=== PATIENT | female | born 1960 | race Caucasian/White ===

== ENCOUNTER → 2016-05-25 | Outpatient (CLI) | payer OTHER ==
[~2016-05-25] MED LIST: AMBIENCR PO; ANTIBIOTIC; ARNICA120 ML TP; B 12 INJECTIONS; B12INJ SQ; BUTRANS1 EAC1 TD; CELEXA20 MG PO; CIPROFLOXACIN500 M1 PO; CLONAZEPAM PO; COLACE100 MG PO; DIAZEPAM5 MG/5 ML PO; DULCOLAX STOOL100 MG PO; ESTROVEN MAX400 MCG PO; FENTANYL PA12 MCG/HR TP; FENTANYL PA25 MCG/HR TOP; FENTANYL PA25 MCG/HR TRANSDERM; FENTANYL PA50 MCG/HR TRANSDERM; FLOMAX0.4 MG PO; HORMONE PILL; HYCET 7.5 MG-3473 ML PO; HYDROCODON-ACE1 EAC5 PO; HYDROCODONE BI473 ML PO; HYDROCODONE PO; HYDROCODONE-AP1 EA11 PO; HYDROCODONE-APA10 ML PO; HYDROCODONE-APA15 ML PO; HYDROXYZINE HCL25 M1 PO; LEXAPRO20 MG PO; LINZESS290 MCG PO; LORTABELXR PO; MOBIC15 MG PO; MOVANTIK25 MG PO; MULTIPLE VITAM1 EAC3 PO; MULTIVITAMINS PO; NEURONTIN 300300 M1 PO; NEURONTIN100 MG PO; NORCO 10-325 T1 EACH PO; NORTRIPTYLINE H25 M3 PO; NYQUIL D COLD295 ML; NYQUIL D COLD295 ML PO; OMEPRAZOLE20 M2 PO; ONDANSETRON ODT8 MG PO; OXYCODONE HCL 55 MG PO; PANTOPRAZOLE SO40 M1 PO; PAXIL 20 MG TAB20 M1 PO; PERCOCET 10-321 EACH PO; PERCOCET 5-3251 EACH PO; PERCOCET PO; PHENERGAN 25 MG25 M1 PO; PROBIOTIC1 EAC1 PO; RELISTOR12 MG/0.2 SQ; RESTORIL15 MG PO; ROBAXIN 750 MG750 M1 PO; ROXICODONE5 MG PO; TRAMADOL 50 MG50 MG PO; TRAZODONE HCL50 MG PO; TRIAMTERENE/HCT1 CA1 PO; VALIUM5 MG PO; WELLBUTRIN SR150 MG PO; WELLBUTRIN XL300 MG PO; XANAX 0.25 MG0.25 MG PO; XANAX 0.5 MG0.5 M1 PO; ZOFRAN ODT4 MG PO; ZOFRAN4 MG PO; ZOLOFT 50 MG TA50 M1 PO; [UNRECOGNIZED DRUG - OTHER]; [UNRECOGNIZED DRUG - OTHER]; [UNRECOGNIZED DRUG - OTHER] PO; [UNRECOGNIZED DRUG - OTHER] TOP
[2016-05-25 12:07] LABS: NUMBER OF TUBES 4; VOLUME 8 ml
[2016-05-25 12:08] LABS: CSF CLARITY CLEAR; CSF COLOR COLORLESS
[2016-05-25 12:09] LABS: CSF PROTEIN 44 mg/dL (15-45)
[2016-05-25 12:15] LABS: CSF WBC 0 /mm3 (0-10)
== END ==
LOC: RAD 09:41
PROVIDERS: Psychiatry & Neurology Neurology
DX: S31.030A Puncture wound without foreign body of lower back and pelvis without penetration into retroperitoneum, initial encounter (principal); M79.2 Neuralgia and neuritis, unspecified

== ENCOUNTER → 2016-05-27 | Outpatient (CLI) | payer OTHER ==
[~2016-05-27] VITALS: Ht 167.6 cm; Wt 96.2 kg
--- NOTE | ~2016-05-27 | H ---
[facility] [address] HISTORY AND PHYSICAL Name: PATRICIA DURHAM GARRY [id number] Ad[facility]: 05/27/16 Attend Phys: Reynaldo Aaron MD Discharge: Date of : 60 Report #: [id number] THIS REPORT FOR: //name// CC: Fredrick Aaron DATE OF SERVICE: 05/27/2016 REASON FOR VISIT: Followup visit for chronic pain, multiple pain generators. Chronic abdominal pain now, primary complaints of left side pain involving arm, torso and leg. HISTORY OF PRESENT ILLNESS: Patricia returns to the pain clinic today in followup. She was last seen one month ago. We had a long discussion about her medications, which had been prescribed by Dr. Nolasco on 05/01/2016. I did not prescribe narcotics for her on that day; he had prescribed it for her. We discussed the important aspects of following up with us for her opioid agreement and I have agreed to provide her once again with medications under terms of our agreement. Her pain remains a bit of a conundrum. She has been seeing Dr. Nolasco, who performed her anterior cervical diskectomy and fusion. He does not think it is related. She is seeing Dr. Kumar and also has been seen by Dr. Fide Russell, neurologist, who performed a lumbar puncture 1 week ago, the results of which are pending. Her symptoms are left sided, do not follow a strict dermatomal distribution and are associated with diffuse aches and pains all along the left side. The intensity of the pain is 6-7/10. It changes with standing, walking, lying down and driving. It is improved with medication, and I have agreed to continue her medications under terms of our agreement. She continues to have nausea and vomiting. Her iron has been low and she is scheduled to receive infusions at . We still have problems with Patricia in that she has seen so many different medical systems and seeing so many different doctors, it is hard to keep track. She is seeing Dr Kumar, Dr. Que Caballero, Dr. Simon, Dr. Manuel Mar, Dr. Figueroa, Dr. Cavazos, Dr. Keo Garibay, Dr. Lakshmi Davenport, now Dr. Russell and Dr. Nolasco. I have told her that are role will be to provide her with medication for her symptoms of pain and I will monitor those closely. She has no significant side effects. Without medication, she feels that she would not be able to get up and out at all. PHYSICAL EXAMINATION: VITAL SIGNS: She is obese, 34.2, blood pressure of 106/73, heart rate 71 and respirations 16. [address] [address] HISTORY AND PHYSICAL Name: PATRICIA DURHAM GARRY Room #: REG CLI M.#: [id number] Admission: 05/27/16 Attend Phys: Reynaldo Aaron MD Discharge: Date of : 60 Report #: [id number] GENERAL: Her affect is anxious and depressed. CHEST: Clear to auscultation. CARDIOVASCULAR: Rhythm is regular. ABDOMEN: Soft, bowel signs are present. MUSCULOSKELETAL: Examination of the skeleton and spine reveals tenderness throughout her neck. She has good range of motion in neck extension and flexion, but complains of some tightness anteriorly from her previous surgery. Deep tendon reflexes are diminished bilaterally at biceps, triceps and brachioradialis and in the lower extremities. She has weakness all along her left side on testing. She has weakness in triceps function, biceps and deltoid. Hand principal librarian is 50% on the left compared to the right. She has pain with hip flexion, leg extension and both are weak on the left hand side. She has a foot drop noticed on the left. This is chronic. IMPRESSION: 1. Chronic abdominal pain related to multiple surgeries, possible functional abdomen. 2. Status post anterior cervical diskectomy with cervicalgia. Unusual left sided disorder with weakness and pain, currently being followed by neurology. 3. Osteoarthritis with history of degenerative osteoarthritis of the left shoulder, hips and knees. 4. Anxiety disorder. 5. Depression. 6. Obesity. 7. Gastroesophageal reflux disease. 8. History of Sjogren's disease. 9. Management of high risk medication. PLAN: I renewed her medications under terms of our opioid agreement. She will be receivin. Gabapentin 100 mg t.i.d. 2. Diazepam 5 mg for muscle spasm and anxiety 1 tablet q.8 hours p.r.n. 3. Oxycodone 5 mg 1 tablet q.6 hours p.r.n. severe pain. Followup visit is planned in 2 months. <ELECTRONICALLY SIGNED> By: Reynaldo Aaron MD 05/28/16 1329 1607 1701 Reynaldo Aaron MD /nt
[2016-05-27 11:20] VITALS: BP 106/73
== END ==
LOC: PAIN 07:25
DX: R10.9 Unspecified abdominal pain (principal); M96.1 Postlaminectomy syndrome, not elsewhere classified; F41.8 Other specified anxiety disorders; K21.9 Gastro-esophageal reflux disease without esophagitis; M35.00 Sjogren syndrome, unspecified

== ENCOUNTER → 2016-09-09 | Outpatient (CLI) | payer OTHER ==
[~2016-09-09] VITALS: Ht 162.6 cm; Wt 98.0 kg
[~2016-09-09] MED LIST changes: +OXYCODON-ACETA1 EAC1 PO; +OXYCODONE-APAP1 EAC6 PO; +PROMETHAZINE HC25 M1 PO
--- NOTE | ~2016-09-09 | HPC ---
[facility] [place] [address] PAIN MANAGEMENT CONSULTATION Name: PATRCIIA DURHAM GARRY Room #: REG CL [facility]ad.#: [id number] Admission: 09/09/16 Attend Phys: Reynaldo Aaron MD Discharge: Date of : 60 Report #: [id number] THIS REPORT FOR: //name// CC: Fredrick Aaron DATE OF SERVICE: 09/09/2016 Followup visit for chronic low back pain with radiculopathy status post lumbar decompression. The patient returns to pain clinic today in followup. I saw her last on August 05 after her surgery when she had an open wound. She is here today to follow up for medication management. She remains on oxycodone 10/325 and we had upped her dose up to 5 tablets a day. She has agreed today that her pain is reduced at a level, so we can begin reducing her dose. The importance of doing this in relationship to the use of lowest effective dose of opioids has been discussed on many occasions. She has agreed that we will reduce both the quantity of tablets as well as the mg dose of each tablet, so a prescription today for Percocet 7.5/325 number 120 for the next month was provided. Most recent urine drug screen was performed in April, it was reviewed, it was appropriate for medications provided by the clinic. Today, she reports that her pain is 7/10. Most of her pain is in her neck today, left arm, left side. She also has some low back pain and left leg pain at night. Wound is no longer as painful as before. She has a third pain generator, which is in her left abdomen where she feels that she may have a hernia. This is worsened with hip flexion. PHYSICAL EXAMINATION: She is pleasant, little bit anxious today due to her persistent ongoing pain. Blood pressure is 97/64 and she has some orthostatic changes. is 216. Her weight is up about 20 pounds from 1 year ago checked by her records. She is able to move from sitting to standing position and ambulate with mild antalgic features. I examined her wound and it is much improved. There is still a little area of opening, but there is no drainage. She is not even using a dressing to cover this area. Examination of her neck reveals pain with forward flexion, extension and rotation. She has some weakness in her left arm with biceps and triceps. Examination of her hernia on the left side is negative. She has multiple incisions and an incisional hernia could be obscured by her obesity. IMPRESSION: 1. Chronic intractable pain with multiple pain generators. 2. Post-laminectomy issues seem to be resolving. 3. Management of high-risk medication. [facility] [address] [place] [address] PAIN MANAGEMENT CONSULTATION Name: PATRICIA DURHAM GARRY Room #: REG CLRich Rios#: [id number] Admission: 09/09/16 Attend Phys: Reynaldo Aaron MD Discharge: Date of : 60 Report #: [id number] PLAN: I renewed oxycodone 7.5/325, reduction of about 30% in her daily dose today. We plan to see her back in the pain clinic in 3 months. By: [id number] Reynaldo Aaron MD /nt
[2016-09-09 08:53] VITALS: BP 97/64
== END ==
LOC: PAIN 06:59
DX: M96.1 Postlaminectomy syndrome, not elsewhere classified (principal); E88.09 Other disorders of plasma-protein metabolism, not elsewhere classified

== ENCOUNTER → 2016-12-06 | Outpatient (CLI) | payer OTHER ==
[~2016-12-06] VITALS: Ht 162.6 cm; Wt 91.4 kg
[~2016-12-06] MED LIST changes: +MYRBETRIQ50 MG PO
[2016-12-06 11:46] VITALS: BP 103/67
== END | disposition home or self-care (01) ==
LOC: PAIN 06:51
DX: M96.1 Postlaminectomy syndrome, not elsewhere classified (principal); G89.29 Other chronic pain; R10.9 Unspecified abdominal pain; F11.20 Opioid dependence, uncomplicated; M35.09 Sjogren syndrome with other organ involvement; E66.09 Other obesity due to excess calories; Z98.890 Other specified postprocedural states; Z88.8 Allergy status to other drugs, medicaments and biological substances

== ENCOUNTER → 2016-12-17 | Outpatient (CLI) | payer OTHER | LOC: NUC 13:21 | DX: M81.0 Age-related osteoporosis without current pathological fracture (principal); E34.9 Endocrine disorder, unspecified; R31.9 Hematuria, unspecified ==

== ENCOUNTER → 2017-03-03 | Outpatient (CLI) | payer OTHER ==
[~2017-03-03] VITALS: Ht 160 cm; Wt 83.9 kg
[~2017-03-03] MED LIST changes: +IBUPROFEN 200200 M1 PO
--- NOTE | ~2017-03-03 | HPC ---
[facility] [address] [address] PAIN MANAGEMENT CONSULTATION Name: PATRICIA DURHAM GARRY [id number] Admission: 03/03/17 Attend Phys: Reynaldo Aaron MD Discharge: Date of : 60 Report #: [id number] THIS REPORT FOR: //name// CC: Fredrick Aaron DATE OF SERVICE: 03/03/2017 The patient is here today in followup for medication management. She has chronic abdominal pain. The patient was last seen in November. At that time, she was having ongoing back pain as well as abdominal pain. She had shown some small weight loss, which has continued. We looked back and it looks as though she has lost about 40 pounds over the course of last year. It is not altogether bad. Her BMI still is 32.8. We discussed ongoing weight loss as an important health goal. She reports; however, that her weight loss is due to the fact that she is anorexic and unable to eat. She has had ongoing diarrhea on a favorable note. At one point, we were concerned about bowel obstruction and as she has had so many abdominal surgeries that I was afraid that she was going to need to have another wading through all the scar tissue. Fortunately, stenosis was resolved and she seems to have avoided additional abdominal surgery. Today, she complains of severe right arm pain and she has surgery scheduled for her shoulder soon. She has decreased range of motion, has tried physical therapy, but the pain is now worse. She reports that she has a rotator cuff injury. I do not have her MRI to evaluate. She is being seen by orthopedic surgeon. She has constant headaches, nothing seems to help that, involves her temples and are frontal in nature. She has tried a variety of medications with limited success. MEDICATIONS: Nortriptyline 10 mg at bedtime, she uses ibuprofen and I have given her cautions about that and her GI system. Estrogen compound cream and trazodone 50 mg at bedtime, Linzess 290 mcg capsule daily, Myrbetriq and pantoprazole. For her abdominal pain, she has been on longstanding oxycodone 7.5 mg, which she takes q.6 hours, this is a total of 30 oxycodone mg per day or 45 morphine mg equivalents. She denies significant side effects. She receives benefit with significant reductions in pain and improvement in daily function. She denies any overuse or diversion of medication. She has been on schedule for each of her visits. Urine drug screens have been performed as well as a buccal screen, which is appropriate for medication being prescribed. She is also on diazepam 5 mg 3 times daily for chronic anxiety and abdominal pain. She seems to have a beneficial effect for her abdominal pain. We have on many occasions discussed the association of an opioid, benzodiazepine and overdose. She has been on it so long that I think it is safe combination for her, but she needs to [address] [place] [address] PAIN MANAGEMENT CONSULTATION Name: HERMINIOPATRICIA JO Room #: REG CLRich Rios#: [id number] Admission: 03/03/17 Attend Phys: Reynaldo Aaron MD Discharge: Date of : 60 Report #: [id number] understand that the doses need to be carefully monitored and she should not accelerate the doses that we have seen as safe. PHYSICAL EXAMINATION: Her affect is pleasant and outgoing. Her blood pressure 123/80, heart rate 81, and respirations 16. BMI is 32.8, down from 6 months ago when she was 34 and 1 year ago when her BMI was 34.3. Her chest is clear. Her cardiac rhythm is regular. Her abdomen is tender throughout with multiple scars. Examination of the skeletal system reveals significant restrictions in range of motion of the right shoulder with internal and external rotation. She has marked tenderness around the joint. No appreciable swelling. IMPRESSION: 1. Chronic abdominal pain. 2. Chronic neck pain, status post anterior cervical discectomy with fusion. 3. Chronic low back pain, status post surgery in July 2016. 4. Severe right shoulder pain related possibly to rotator cuff injury and surgery anticipated. 5. Management of high risk medication under terms of an opioid agreement. We have reviewed the CDC guidelines and we have reviewed her responsibilities. Her medication is being used cautiously and carefully and we plan to follow up again in 3 months. Buccal drug screen will be performed at next visit. Time spent with the patient roughly 30 minutes. By: 1131 [id number] Reynaldo Aaron MD /nt
[2017-03-03 11:23] VITALS: BP 123/80
== END | disposition home or self-care (01) ==
LOC: PAIN 02-03 06:53
DX: Z76.0 Encounter for issue of repeat prescription (principal); G89.29 Other chronic pain; R10.9 Unspecified abdominal pain; M54.2 Cervicalgia; M54.5 Low back pain; M25.511 Pain in right shoulder; F41.8 Other specified anxiety disorders; Z79.891 Long term (current) use of opiate analgesic; Z98.890 Other specified postprocedural states; Z88.6 Allergy status to analgesic agent; Z88.0 Allergy status to penicillin; Z88.2 Allergy status to sulfonamides

== ENCOUNTER → 2017-05-04 | Outpatient (CLI) | payer OTHER ==
[~2017-05-04] MED LIST changes: +OXYCODONE-ACET1 EAC2 PO
== END ==
LOC: HYPER 06:44
DX: S81.801A Unspecified open wound, right lower leg, initial encounter (principal); K21.9 Gastro-esophageal reflux disease without esophagitis; F32.9 Major depressive disorder, single episode, unspecified; Z90.710 Acquired absence of both cervix and uterus; X58.XXXA Exposure to other specified factors, initial encounter; Y93.89 Activity, other specified; Y92.89 Other specified places as the place of occurrence of the external cause; Y99.8 Other external cause status

== ENCOUNTER → 2017-05-19 | Outpatient (CLI) | payer OTHER ==
[~2017-05-19] MED LIST changes: +BENTYL 10 MG CA10 M1 PO; +PILOCARPINE HCL5 M1 PO; +RESTASIS1 EACH OPHTHALMIC; +ZOFRAN ODT4 MG DISSOLVE; +[UNRECOGNIZED DRUG - OTHER] TOP
== END ==
LOC: HYPER 06:52
DX: T81.89XD Other complications of procedures, not elsewhere classified, subsequent encounter (principal); L03.115 Cellulitis of right lower limb; R60.0 Localized edema; K21.9 Gastro-esophageal reflux disease without esophagitis; F32.9 Major depressive disorder, single episode, unspecified; Z90.710 Acquired absence of both cervix and uterus; Y83.8 Other surgical procedures as the cause of abnormal reaction of the patient, or of later complication, without mention of misadventure at the time of the procedure

== ENCOUNTER → 2017-05-27 | Outpatient (CLI) | payer OTHER ==
[~2017-05-27] VITALS: Ht 160 cm; Wt 81.6 kg
--- NOTE | ~2017-05-27 | HPC ---
[facility] [address] [place] [address] PAIN MANAGEMENT CONSULTATION Name: HERMINIO,PATRICIA GARRY Room #: REG [id number] Admission: 05/27/17 Attend Phys: Hermes Figueroa MD Discharge: Date of : 60 Report #: [id number] THIS REPORT FOR: //name// CC: Hermes Kumar MD DATE OF SERVICE: 05/27/2017 FOLLOWUP COMPLAINT: Here for medication renewal. FOLLOWUP HISTORY: The patient is a 57-year-old female who has been followed in the pain clinic by Dr. Reynaldo Aaron. He has continued with her medications of a complex medical management treatment. She feels that her medications are continuing to be quite efficacious. She is unable to see Dr. Aaron today and will follow up with him in about a month. She states that she has pain and discomfort in a number of areas. It involves her stomach, esophagus, as well as her shoulders. She had shoulder surgery in 2017. She states that she has had some problems with osteoporosis, sporadic changes and is having some discomfort in her neck, left arm, back, as well as some pain at night in her legs and abdomen. She rates her pain today as a 7/10. She describes the discomfort as dull, aching, spasmodic, and stabbing. She states that her incisions have continued to heal up very nicely in her right shoulder area. ALLERGIES: TAPE, MORPHINE, DILAUDID, AND ZOLPIDEM. MEDICATIONS: OxyContin 7.5 mg 1 p.o. q. 6 hours p.r.n., Valium for muscle spasms 5 mg p.r.n. as well as for anxiety, ibuprofen 200 mg q. 6 hours p.r.n., Myrbetriq, Linzess 290 mcg, trazodone 50 mg at bedtime, estrogen cream, hydroxyzine 25 mg t.i.d., vitamin B12, Relistor 12/0.6, and pantoprazole 40 mg daily. PHYSICAL EXAMINATION: VITAL SIGNS: Blood pressure 129/74, pulse 86, respiratory rate 20, room air saturations 100, height 5 feet 3 inches, weight 188 pounds, BMI is 33. GENERAL: The patient does complain of some vertigo/dizziness. She has not fallen. HEENT: Unremarkable. Head is atraumatic. Extraocular muscles intact. No JVD. No adenopathy. HEART: Regular rate and rhythm, normal S1, S2. LUNGS: Clear to auscultation. ABDOMEN: Somewhat tender per the patient's report. EXTREMITIES: Some soreness in the right shoulder area status post surgery. IMPRESSION: 1. Chronic abdominal pain. [address] [address] PAIN MANAGEMENT CONSULTATION Name: PATRICIA DURHAM Room #: REG CLI [facility].#: [id number] Admission: 05/27/17 Attend Phys: Hermes Figueroa MD Discharge: Date of : 60 Report #: [id number] 2. Chronic neck pain, status post anterior cervical dissection with fusion. 3. Chronic low back pain status post surgery in July 2016. 4. Right-sided shoulder pain, which is improving. 5. Management of high risk medications under terms of an opioid agreement. RECOMMENDATIONS: We discussed treatment options with the patient. At this juncture, we will continue with her current medical regimen of oxycodone. She states that her other medications are good, doing reasonably well. She will follow up with Dr. Aaron in the near future. She is feeling that she may have some problems going on with her kidneys. She has experienced kidney stones in the past. She states that she is having some discomfort consistent with what she has experienced when she did have kidney stones. She states that her urine maybe a little bit more concentrated at this juncture. She is going to see her urologist in the near future in this regard. She will call us if she has any problems or concerns. We would like to thank you for letting us participate in her care. Hope she continues to improve. <ELECTRONICALLY SIGNED> By: Hermes Figueroa MD 06/01/17 0837 1417 0120 Hermes Figueroa MD /[facility]
[2017-05-27 11:29] VITALS: BP 100/58
== END ==
LOC: PAIN 10:57
DX: R10.9 Unspecified abdominal pain (principal); M54.2 Cervicalgia; M54.5 Low back pain; M25.511 Pain in right shoulder; F11.90 Opioid use, unspecified, uncomplicated; Z98.890 Other specified postprocedural states; Z79.899 Other long term (current) drug therapy

== ENCOUNTER → 2017-06-02 | Outpatient (CLI) | payer OTHER | LOC: HYPER 05-12 06:31 | DX: T81.89XD Other complications of procedures, not elsewhere classified, subsequent encounter (principal); K21.9 Gastro-esophageal reflux disease without esophagitis; F32.9 Major depressive disorder, single episode, unspecified; F41.9 Anxiety disorder, unspecified; Z90.710 Acquired absence of both cervix and uterus; Y83.8 Other surgical procedures as the cause of abnormal reaction of the patient, or of later complication, without mention of misadventure at the time of the procedure ==

== ENCOUNTER → 2017-06-20 | Outpatient (CLI) | payer OTHER ==
[~2017-06-20] VITALS: Ht 160 cm; Wt 83.1 kg
--- NOTE | ~2017-06-20 | HPC ---
[facility] [address] [address] PAIN MANAGEMENT CONSULTATION Name: HERMINIOPATRICIA GARRY [facility]: [facility] [id number] Admission: 06/20/17 Attend Phys: Reynaldo Aaron MD Discharge: Date of : 60 Report #: [id number] THIS REPORT FOR: //name// CC: Fredrick Aaron DATE OF SERVICE: 06/20/2017 DATE OF REGISTRATION: 06/20/2017 Followup visit for management of chronic intractable pain and management of medication. The patient returns to pain clinic today for renewal of medication. She was last seen by my partner, Dr. Figueroa a little less than 1 month ago and he provided with 1 month of medication. Under terms of written opioid agreement, I agreed to provide her with hydrocodone 7.5/325 four tablets daily. She has been on this in combination with diazepam and has done well with it. She has had no interactions suggesting overmedication or sedation and I have discussed with her the pathology data from overdoses that have been recognized the dangerous nature of combination of benzodiazepine with opioids. Given her longstanding use of both of these medications and lack of complication, I have agreed to provide it for muscle spasm and pain. She will diligently safeguard her medications as we have discussed. PQRS REVIEW: Today shows that she does have a BMI of 32.5 and weight loss has been discussed in the past. She has chronic abdominal pain, but her ability to lose weight is limited even though she describes absorption issues. This likely related to her lack of metabolic activity and exercise. It was reviewed today. Pain intensity is 7/10, mostly in her neck, shoulders, and upper back. She had requested an epidural injection. She is not a fall risk. She is on no blood thinners. She is not hypertensive. She does have a written opioid agreement, which has been signed and reviewed again with her today. She is at low risk of addiction 2-3 based upon her assessment and her functional assessment tool is 24/70. It is noted that she has an open wound on her leg that has been slow in healing. IMPRESSION: 1. Chronic intractable abdominal pain well controlled at this time. 2. Chronic neck pain, status post anterior cervical diskectomy and fusion. She has some radicular features. I do not want to perform an epidural injection with steroids as she has this poorly [place] [address] PAIN MANAGEMENT CONSULTATION Name: PATRICIA DURHAM GARRY Room #: REG CLRich Rios#: [id number] Admission: 06/20/17 Attend Phys: Reynaldo Aaron MD Discharge: Date of : 60 Report #: [id number] 3. Management of high risk medications and her written opioid agreement. PLAN: I have renewed her medications for 3 months. A buccal drug screen was ordered since it has been sometimes since we have had an assessment of her medications. She was discharged with a followup visit planned in 3 months. <ELECTRONICALLY SIGNED> By: Reynaldo Aaron MD 07/20/17 1640 1321 2150 Reynaldo Aaron MD /nt
[2017-06-20 11:25] VITALS: BP 99/66
== END ==
LOC: PAIN 07:03
DX: G89.29 Other chronic pain (principal); M54.2 Cervicalgia; M54.6 Pain in thoracic spine; M25.511 Pain in right shoulder; M25.512 Pain in left shoulder; F11.90 Opioid use, unspecified, uncomplicated; Z98.890 Other specified postprocedural states; Z79.899 Other long term (current) drug therapy

== ENCOUNTER → 2017-06-20 | Outpatient (CLI) | payer OTHER | LOC: HYPER 06:48 | DX: T81.89XD Other complications of procedures, not elsewhere classified, subsequent encounter (principal); K21.9 Gastro-esophageal reflux disease without esophagitis; F32.9 Major depressive disorder, single episode, unspecified; Z90.710 Acquired absence of both cervix and uterus; Y83.8 Other surgical procedures as the cause of abnormal reaction of the patient, or of later complication, without mention of misadventure at the time of the procedure ==

== ENCOUNTER → 2017-07-04 | Outpatient (CLI) | payer OTHER | LOC: HYPER 07:01 | DX: T81.89XD Other complications of procedures, not elsewhere classified, subsequent encounter (principal); L03.115 Cellulitis of right lower limb; R60.0 Localized edema; K21.9 Gastro-esophageal reflux disease without esophagitis; F32.9 Major depressive disorder, single episode, unspecified; Z90.710 Acquired absence of both cervix and uterus; Y83.8 Other surgical procedures as the cause of abnormal reaction of the patient, or of later complication, without mention of misadventure at the time of the procedure ==

== ENCOUNTER → 2017-08-08 | Outpatient (CLI) | payer OTHER ==
[~2017-08-08] VITALS: Ht 160 cm; Wt 82.2 kg
--- NOTE | ~2017-08-08 | HPC ---
[facility] [place] [address] [address] PAIN MANAGEMENT CONSULTATION Name: PATRICIA DURHAM GARRY Room #: REG [facility].#: [id number] Admission: 08/08/17 Attend Phys: Reynaldo Aaron MD Discharge: Date of : 60 Report #: [id number] THIS REPORT FOR: //name// CC: Fredrick Aaron DATE OF SERVICE: 08/08/2017 REASON FOR VISIT: Followup visit for cervical radiculopathy. HISTORY OF PRESENT ILLNESS: The patient presents back to the Pain Clinic today with cervicalgia with radiation into the shoulders and upper arms. She is here today for a cervical epidural. She describes her pain as a 7/10, sharp, stabbing and aching. Pain is exacerbated by eating (!). She states her pain level is constant throughout the day. PHYSICAL EXAMINATION: VITAL SIGNS: Blood pressure 107/59, heart rate 75, respirations 16 and BMI is 32.1. MUSCULOSKELETAL: She has pain with neck flexion and extension, rotational side to side movements. She has weakness in retail account representative and biceps. Sensation is intact. Deep tendon reflexes are normal in lower extremities. IMPRESSION: 1. Cervicalgia with radiculopathy. 2. Chronic abdominal pain under medication management. PLAN: 1. Cervical epidural injection. 2. Renewal of oxycodone 7.5 one tablet 4 times daily. Morphine milligram equivalent dose per day is 45. She is on an opioid agreement. Important safeguarding information reviewed. I also provided with chronic diazepam, which helps with abdominal spasm. She has demonstrated safety in this combination now for many years at current dosing. PROCEDURE: Cervical epidural injection. She was taken to fluoroscopic suite, placed prone, skin prepped with ChloraPrep. Skin anesthetized over the C7-T1 interspace. A 20-gauge Tuohy epidural needle was advanced into the cervical epidural space with loss of resistance technique. There was no blood or CSF aspirated. One milliliter of Omnipaque injected and good spread of dye observed into the epidural space cephalad and caudad was followed by 3 mL of 0.5% lidocaine mixed with 80 mg of triamcinolone. She tolerated the procedure well. She was observed for 45 minutes and discharged. Followup visit planned on an as needed basis. [address] [address] PAIN MANAGEMENT CONSULTATION Name: PATRICIA DURHAM GARRY Room #: REG JOSE Rios#: [id number] Admission: 08/08/17 Attend Phys: Reynaldo Aaron MD Discharge: Date of : 60 Report #: [id number] I renewed her medications and reviewed her Medicare PQRS assessment. She does suffer from obesity with a BMI of 32.1. She has tried to control weight. Blood pressure is stable with no history of hypertension. Blood pressure 107/59 and heart rate 75. She is not a fall risk. She has an opioid agreement signed on her chart dated 11/03/2015. She has completed an opioid risk tool with a low risk of 2. Her functional assessment tool shows good pain management techniques with a 24/70. She denies use of tobacco. Followup visit is planned in 3 months. <ELECTRONICALLY SIGNED> By: Reynaldo Aaron MD 08/29/17 1408 1140 1210 Reynaldo Aaron MD /nt
[2017-08-08 13:19] VITALS: BP 107/59
== END | disposition home or self-care (01) ==
LOC: PAIN 07:23
DX: M54.12 Radiculopathy, cervical region (principal); G89.29 Other chronic pain; R10.9 Unspecified abdominal pain; E66.09 Other obesity due to excess calories; Z79.891 Long term (current) use of opiate analgesic; Z68.32 Body mass index [BMI] 32.0-32.9, adult; Z88.8 Allergy status to other drugs, medicaments and biological substances

== ENCOUNTER → 2017-08-10 | Outpatient (CLI) | payer OTHER | LOC: NUC 14:20 | DX: M81.0 Age-related osteoporosis without current pathological fracture (principal); E28.39 Other primary ovarian failure; Z79.899 Other long term (current) drug therapy ==

== ENCOUNTER → 2017-09-05 | Outpatient (CLI) | payer OTHER ==
[~2017-09-05] MED LIST changes: -BENTYL 10 MG CA10 M1 PO; -PILOCARPINE HCL5 M1 PO; -RESTASIS1 EACH OPHTHALMIC; -ZOFRAN ODT4 MG DISSOLVE
== END ==
LOC: HYPER 08:45
DX: T81.89XD Other complications of procedures, not elsewhere classified, subsequent encounter (principal); K21.9 Gastro-esophageal reflux disease without esophagitis; F32.9 Major depressive disorder, single episode, unspecified; Z90.710 Acquired absence of both cervix and uterus; Y83.8 Other surgical procedures as the cause of abnormal reaction of the patient, or of later complication, without mention of misadventure at the time of the procedure

== ENCOUNTER → 2017-09-13 | Outpatient (CLI) | payer OTHER | LOC: ULTRA 05:51 | DX: R10.31 Right lower quadrant pain (principal); M81.0 Age-related osteoporosis without current pathological fracture ==

== ENCOUNTER → 2017-09-15 | Outpatient (CLI) | payer OTHER | LOC: NUC 06:13 | DX: E21.3 Hyperparathyroidism, unspecified (principal) ==

== ENCOUNTER → 2017-09-19 | Outpatient (CLI) | payer OTHER | LOC: HYPER 06:51 | DX: T81.89XD Other complications of procedures, not elsewhere classified, subsequent encounter (principal); R60.0 Localized edema; L03.115 Cellulitis of right lower limb; K21.9 Gastro-esophageal reflux disease without esophagitis; F32.9 Major depressive disorder, single episode, unspecified; Z90.710 Acquired absence of both cervix and uterus; Y83.8 Other surgical procedures as the cause of abnormal reaction of the patient, or of later complication, without mention of misadventure at the time of the procedure ==

== ENCOUNTER → 2017-12-08 | Outpatient (CLI) | payer OTHER ==
[~2017-12-08] VITALS: Ht 160 cm; Wt 85.5 kg
--- NOTE | ~2017-12-08 | HPC ---
[facility] [place] [address] PAIN MANAGEMENT CONSULTATION Name: PATRICIA DURHAM GARRY Room #: REG CL M..#: [id number] Admission: 12/08/17 Attend Phys: Reynaldo Aaron MD Discharge: Date of : 60 Report #: [id number] THIS REPORT FOR: //name// CC: Wenceslao Aaron DATE OF SERVICE: 12/08/2017 Followup visit for chronic pain. The patient returns to Pain Clinic today for renewal of pain medication, which I provided for her chronic condition. She has multiple physicians and multiple medical conditions, which she outlined for me today. I see her mostly for chronic abdominal pain. She has had up to 28 abdominal surgeries and we have been fortunate in keeping her out of the operating room since we have been managing her pain with medication. One of our expressed goals is to avoid her being seen in the hospital in severe abdominal crisis and undergoing further abdominal surgery. I think we have accomplished some goals with that. She now complains also of problems with her parathyroid. She has been suffering from low blood pressure. She has an appointment scheduled with a cleaning custodian and an aemt, Dr. Meghan Le at [facility] on 12/26/2017. She has been in and out of the hospital on a couple of occasions. She has been in the Emergency Room. She was given a calcium infusion on 11/25/2017 and was told that this would help her feel better. In addition to myself and her primary care doctor, she sees Dr. Dahl, neurologist; Dr. Herr, strategic buyer; now Dr. Le, an aemt and she also sees a cleaning custodian. She has had a psychologist in the past as well. Pain today is 7/10. She describes there is pain in her neck, both shoulders, upper arms, low back and abdomen. PHYSICAL EXAMINATION: She is pleasant, outgoing. No signs of acute distress. Her blood pressure 104/61, heart rate 71, respirations 14, BMI is 33.4. She has good range of motion of the neck. Her chest is clear and her cardiac rhythm is regular. Abdomen demonstrates multiple scarring and she has local tenderness. She walks with antalgic features. She has tenderness in her neck with range of motion, tenderness in both shoulders with range of motion and she has some straight leg raising discomfort in her lower extremities. IMPRESSION: Chronic pain with multiple pain generators including abdomen, cervicalgia with radiculopathy, low back pain with radiculopathy, osteoarthritis involving shoulders, hips and knees. History of anxiety and depression. [address] [address] PAIN MANAGEMENT CONSULTATION Name: PATRICIA DURHAM GARRY Room #: REG [facility] Alon.#: [id number] Admission: 12/08/17 Attend Phys: Reynaldo Aaron MD Discharge: Date of : 60 Report #: [id number] obesity. History of Sjogren's syndrome. Chronic abdominal pain is related to multiple surgeries with functional abdominal pain. PLAN: I renewed her opioid medication under terms of our written agreement. She is grateful for the pain relief that it provides and she has no significant side effects. She manages her medication carefully. I also provided her diazepam 5 mg 3 times daily, the combination of the opioid and the benzodiazepine that had been taking chronically and appeared to have no adverse effects or respiratory depression effects. Our plan is to follow up with her in 2-3 months. Prescriptions were written and released with dated release. The importance of safeguarding all medications in terms of our agreement were reviewed. By: [id number] Reynaldo Aaron MD /nt
[2017-12-08 11:17] VITALS: BP 104/61
== END ==
LOC: PAIN 06:12
DX: M54.12 Radiculopathy, cervical region (principal); M54.16 Radiculopathy, lumbar region; M17.0 Bilateral primary osteoarthritis of knee; M19.012 Primary osteoarthritis, left shoulder; M19.011 Primary osteoarthritis, right shoulder; M16.0 Bilateral primary osteoarthritis of hip; G89.29 Other chronic pain; R10.9 Unspecified abdominal pain; F41.9 Anxiety disorder, unspecified; F32.9 Major depressive disorder, single episode, unspecified; E66.01 Morbid (severe) obesity due to excess calories; Z79.891 Long term (current) use of opiate analgesic

== ENCOUNTER → 2018-03-07 | Outpatient (CLI) | payer OTHER ==
[~2018-03-07] VITALS: Ht 160 cm; Wt 83.0 kg
[~2018-03-07] MED LIST changes: +BENTYL 10 MG CA10 M1 PO; +PILOCARPINE HCL5 M1 PO; +RESTASIS1 EACH OPHTHALMIC; +ZOFRAN ODT4 MG DISSOLVE
--- NOTE | ~2018-03-07 | HPC ---
[facility] [address] [place] [address] PAIN MANAGEMENT CONSULTATION Name: PATRICIA DURHAM GARRY Room #: REG [facility] M..#: [id number] Admission: 03/07/18 Attend Phys: Jude Hinton DO Discharge: Date of : 60 Report #: [id number] THIS REPORT FOR: //name// CC: Teresa Kumar DATE OF SERVICE: 03/07/2018 CHIEF COMPLAINT: Neck pain, bilateral shoulder pain, low back pain, bilateral kidney pain secondary to nephrolithiasis. HISTORY OF PRESENT ILLNESS: As you know, the patient is an unfortunate 58-year-old female who suffers from pain that involves the neck, bilateral shoulders, low back, and currently bilateral kidneys. She indicates pain is stabbing, sharp and aching in sensation, exacerbated with eating and activities, improves with medications, cold compress. She is placing current pain score 7/10. She states she continues to follow up with Nephrology in regards to chronic kidney issues. She was recently provided tramadol by her primary care physician, though she did not report this to our services, it was noted on [facility]-TRACS that we ran today. She received 100 tramadol without contacting our clinic. She returns today in followup visit requesting refill on medications. She is experiencing neck pain goes that into both shoulders, low back. She is having some difficulty with constipation, though she takes Zofran in conjunction with Relistor, which is essentially counteracting the effects of either of the medications. She returns for refill of medications. ALLERGIES: 1. MEPERIDINE. 2. HYDROMORPHONE. 3. MORPHINE. 4. ADHESIVE TAPES. 5. ERYTHROMYCIN. 6. ZOLPIDEM. 7. MIDAZOLAM. 8. MULTIPLE OPIOIDS. CURRENT MEDICATIONS: Cyclosporine one drop each eye per day, dicyclomine 10 mg 4 times a day, ondansetron 4 mg p.r.n., pilocarpine 5 mg 3 times a day, Percocet 7.5/325 four times a day, diazepam 5 mg 3 times a day, vitamin supplementation 1 tab per day, hydrochlorothiazide/triamterene 37.5/25 one tab p.o. q. day, nortriptyline 25 mg per day, gabapentin 300 mg 3 times a day, ibuprofen 200 mg 3 times a day, Myrbetriq 50 mg once a day, Linzess 290 mcg per day, trazodone 50 mg per day, estrogen cream apply topically, Relistor 12 mg once a day, pantoprazole 40 mg per day, Prolia every 6 months. SOCIAL HISTORY: The patient reports herself as a nonsmoker. [facility] [place] [address] PAIN MANAGEMENT CONSULTATION Name: PATRICIA DURHAM Room #: REG JOSE Rios#: [id number] Admission: 03/07/18 Attend Phys: Jude Hinton DO Discharge: Date of : 60 Report #: [id number] illicit drug use. She is unaccompanied today. IMAGING: No new imaging available. PQRS: The patient has arthritic changes of the neck, bilateral shoulders and low back. She does not suffer from rheumatoid arthritis. She places pain intensity 7/10, not a fall risk, has not had a fall in the last 3 months. She is not on blood thinner. She is treated for hypertension. She is on opioids and has been for an extended period of time. She is at mdz-iq-beuizjde risk for opioid addiction, pain impact functional impact tool indicates 24/70, faex-so-ztfdswxj interference. PHYSICAL EXAMINATION: VITAL SIGNS: Blood pressure 105/66, pulse 71, respiratory rate 16 and unlabored. The patient is 96% on room air. Height 5 feet 3 inch tall, weight 183 pounds, BMI calculated 32.4. GENERAL: Well-developed, well-nourished, well-hydrated, exogenously obese 58-year-old female appearing stated age, placing current pain score 7/10. HEENT: Normocephalic, atraumatic. Pupils equal, round, reactive to light. EXTREMITIES: Show no clubbing, no cyanosis, no edema. ABDOMEN: Does demonstrate multiple scars, tenderness noted throughout. She has decreased range of motion of bilateral shoulders due to pain. Cervical provocation testing is met with increasing symptoms. ASSESSMENT: 1. Chronic neck pain. 2. Bilateral shoulder pain secondary to osteoarthritis. 3. Chronic low back pain. 4. History of pancreatitis. 5. Opioid dependency. 6. Complicated medication management. 7. Chronic intractable pain. PLAN: 1. The patient returns today in followup visit scheduled on our schedule as her typical pain physician, Dr. Aaron is unavailable due to scheduling conflicts. The patient comes to us today indicating desire to refill all medications. She has been reporting no side effects to medication except for chronic constipation for which she is treated with Relistor. The patient was noted to have received opioids from another physician, in particular Dr. Fredrick Kumar, who provided tramadol therapy to this patient. The patient was cautioned that she is under contract with [facility], she is not to receive opioids from another physician without expressed verbal or written consent from our services indicating this was appropriate. I have advised the patient at this time she is not to utilize the tramadol therapy without clearance initially. The patient states this medication caused headaches and has discontinued its use. I have [facility] [address] [address] PAIN MANAGEMENT CONSULTATION Name: PATRICIA DURHAM GARRY Room #: REG JOSE Gabriel#: [id number] Admission: 03/07/18 Attend Phys: Jude Hinton DO Discharge: Date of : 60 Report #: [id number] advised the patient to discard these medications in an appropriate manner returning these to her pharmacy, so they need to be destroyed. She is not to continue to receive opioid medications from any other physician without expressed written or verbal consent from her contracted physician for opioid medications. The patient continues workup from a nephrology standpoint. We will defer to the Nephrology team for treatment for her chronic kidney issues. These do not appear to be causing much in the way of differentiation in pain at present. Apparently, there was some discomfort with the kidney stones prior, but these have now been addressed. 2. The patient was provided a prescription of Percocet 7.5/325 one tab p.o. q. 6 hours p.r.n. for pain. I have given the patient #120, releases of today, 4 weeks from today, 8 weeks from today, 3 months worth of medication. The patient was advised to take the medication only when pain is intolerable, not to rely on the medication prophylactically. 3. The patient was provided a refill prescription of diazepam 5 mg dose 1 tab p.o. t.i.d., I have given the patient #90 tablets with 2 refills. These were originally provided by Dr. Aaron for spasming. The patient reports some improvement in symptoms. We will continue the therapy, they can discuss efficacy at followup visit. 4. We reviewed the fact that opiate medications are being used to provide analgesia adequate to support activities of daily living, not attempting to achieve a specific pain score on the 0-10 Visual Analog Scale. The current opiate medications are providing sufficient analgesia to allow the patient to participate in activities of daily living. The patient is not exhibiting any aberrant behavior suggestive of drug diversion. The patient is not having any adverse reactions to medications. The patient is not suffering from daytime somnolence or mental acuity changes. The patient is managing opiate-induced constipation with appropriate leph-qre-ynmvrud agents and dietary considerations. The patient was counseled on concern for caution with operating a motor vehicle while using opiate medications. A physical exam was performed and the patient's functional status was evaluated. All patients with back pain were advised against the bed rest greater than 4 days and were advised to return to normal activities. Pain score assessment was noted and the treatment plan was reviewed with the patient. All current medications, both prescribed and OTC were reviewed and reconciled on the electronic medical record. Tobacco screening was accomplished and smoking cessation was advised when indicated. BMI was noted and diet/exercise modification was recommended for all patients following outside normal parameters. I reviewed with the patient today their responsibilities to safeguard prescription medications, reviewed their responsibility to utilize medications [address] [address] PAIN MANAGEMENT CONSULTATION Name: PATRICIA DURHAM Room #: REG JOSE Rios#: [id number] Admission: 03/07/18 Attend Phys: Jude Hinton DO Discharge: Date of : 60 Report #: [id number] only as prescribed by the physician. They are to seek and receive pain medications only from 1 physician group ( [facility]). They are to use 1 pharmacy and keep the clinic informed if they change pharmacies. Their responsibilities include making followup visits in a timely fashion and to avoid abrupt discontinuation of medication usage. Their responsibilities further include bringing their medications (bottles from the pharmacy with residual pills) to the visit for possible confirmation of pill counts and the patient understands it is their responsibility to submit to random drug screens to ensure both that the medications prescribed are present, and that no other controlled substances are present. All prescriptions provided today were generated electronically. 5. The patient to return to see Dr. Aaron in 3 months. <ELECTRONICALLY SIGNED> By: Jude Hinton DO 03/08/18 1059 0946 1242 Jude Hinton DO /nt
[2018-03-07 09:03] VITALS: BP 105/66
== END ==
LOC: PAIN 06:49
DX: M54.2 Cervicalgia (principal); M54.5 Low back pain; M19.011 Primary osteoarthritis, right shoulder; M19.012 Primary osteoarthritis, left shoulder; G89.4 Chronic pain syndrome; K85.90 Acute pancreatitis without necrosis or infection, unspecified; F11.20 Opioid dependence, uncomplicated; Z79.899 Other long term (current) drug therapy

== ENCOUNTER → 2018-05-19 | Outpatient (CLI) | payer OTHER ==
[~2018-05-19] VITALS: Ht 160 cm; Wt 85.5 kg
[~2018-05-19] MED LIST changes: +CYMBALTA20 MG PO; +INDERAL 20 MG T20 M1 PO; +PYRIDOSTIGMINE60 M1 PO; +VISTARIL 25 MG25 M1 PO
[2018-05-19 13:56] VITALS: BP 96/57
--- NOTE | 2018-05-19 14:13 | NUR ---
Pain Clinic Assessment: 1. History of Osteoarthritis: Not Applicable History of Rheumatoid Arthritis: Not Applicable 2. Height: 5 ft. 3 in. 160.0 cm. Weight: 188.6 lb. oz. 85.548 kg. Patient's BMI: 33.4 3. Vital Signs: BP: 96/57 Pulse: 58 Resp: 16 Temp: 02 Sat: 100 ECG Mon: 4. Pain Intensity: 7 5. Fall Risk: Dizziness: Y Needs help standing or walking: N Fallen in the last 3 months: N Fall risk comments: 6. Patient on Blood Thinner: None 7. History of Hypertension: N 8. Opioid Therapy greater than 6 weeks: Y Opiate Contract Signed: 11/03/15 9. Risk Assessment Tool Provided: LOW RISK 2/3 10. Functional Assessment Tool: 11. Recreational Drug Use: Never Drug Type: Tobacco Use: Never Smoker Tobacco Type: Amount or Packs/day: How Many Years: Alcohol Use: No Frequency: Quant:
--- NOTE | 2018-05-24 11:18 | HPC ---
[facility] [address] [address] PAIN MANAGEMENT CONSULTATION Name: PATRICIA DURHAM GARRY Room #: REG [facility].#: [id number] Admission: 05/19/18 Attend Phys: Reynaldo Aaron MD Discharge: Date of : 60 Report #: [id number] THIS REPORT FOR: //name// CC: IVON Aaron DATE OF SERVICE: 05/19/2018 CHIEF COMPLAINT: Chronic neck pain, bilateral shoulder pain, low back pain, bilateral abdominal pain. The patient is a longstanding patient of our clinic who is followed for medication management. I provide for her oxycodone 7.5/325 one tablet 4 times daily and Valium 5 mg t.i.d., which has helped with her chronic abdominal pain. We have expressed goals of keeping her out of the operating room for further abdominal surgeries. She has had dozens of surgeries entering her abdomen. The Valium seems to have helped a great deal and she tolerates the combination of the oxycodone and Valium at low doses without any particular complications. We understand that there is a benzodiazepine opioid risk and she safeguards her medication carefully from someone that might be an issue. She saw Dr. Ivon Nolasco who is tending to perform surgery on her lumbar spine. Surgery is upcoming in the next month or 2. PQRS REVIEW: 1. The patient has arthritis of the cervical spine with spondylosis and pain in both shoulders due to osteoarthritic changes. 2. BMI is 33.4. She was counseled about weight loss. 3. Blood pressure 96/57, heart rate 58. 4. Pain intensity 7/10. 5. She is not a fall risk. 6. No blood thinners. 7. No history of hypertension. 8. She is on an opioid agreement signed initially in 2013, renewed in 2016. Her low risk score is 2/3. Functional assessment tool . 9. She denies use of tobacco or alcohol. PHYSICAL EXAMINATION: Pleasant female. She is able to move easily from sitting to standing position. Her gait is antalgic. She has pain across her low back, pain with forward flexion, extension across the lumbosacral segment. A scar in her back is well healed and is almost hard to see. She has multiple abdominal scars. Tenderness across the low back is present and there is pain with forward flexion, extension and rotation. Straight leg raising bilaterally is positive. IMPRESSION: [facility] [address] [place] [address] PAIN MANAGEMENT CONSULTATION Name: PATRICIA DURHAM GARRY Room #: REG CLI [facility]#: [id number] Admission: 05/19/18 Attend Phys: Reynaldo Aaron MD Discharge: Date of : 60 Report #: [id number] 1. Chronic intractable low back pain with radiculopathy. 2. Chronic cervicalgia, status post anterior cervical diskectomy and fusion. 3. Management of high risk medication under terms of an opioid agreement. 4. Chronic abdominal pain. She has been helped dramatically by the addition of Valium. PLAN: Medications renewed for 3 months and followup visit planned after her surgery. Dr. Nolasco may provide her with postoperative pain medications, which we will be aware of and follow with the prescription drug monitoring programs available to us. <ELECTRONICALLY SIGNED> By: Reynaldo Aaron MD 05/24/18 1118 1711 03 Reynaldo Aaron MD /nt
== END ==
LOC: PAIN 08:14
DX: M54.16 Radiculopathy, lumbar region (principal); R10.9 Unspecified abdominal pain; G89.4 Chronic pain syndrome; M54.2 Cervicalgia; M43.22 Fusion of spine, cervical region; Z87.891 Personal history of nicotine dependence

== ENCOUNTER 2018-08-29 12:33 | Emergency (ER) | payer OTHER ==
[~2018-08-29] VITALS: Ht 157.5 cm; Wt 84.8 kg
[~2018-08-29 12:33] MED LIST changes: -FLEXERIL PO; -MIDODRINE HCL2.5 M1 PO; -MOBIC7.5 MG PO; -NONFORMULARY; -ZPAK PO
[2018-08-29 13:41] LABS: ABSOLUTE NEUTROPHILS 3.2 thou/uL (1.4-8.2); BASOPHILS 0.4 % (0.0-2.0); HEMATOCRIT 37.4 % (37.0-47.0); HEMOGLOBIN 12.5 gm/dL (12.0-15.0); LYMPHOCYTES 33.6 % (24.0-44.0); MCH 31.2 pg (26.0-34.0); MCHC 33.4 g/dL (28.0-37.0); MCV 93.3 fL (80.0-100.0); PLATELET COUNT 274 thou/uL (150-400); RBC 4.01 mil/uL (4.20-5.00); RDW 12.9 % (10.5-14.5); WBC 5.4 thou/uL (4.0-11.0)
[2018-08-29 13:52] LABS: ANION GAP 4 mmol/L (7-16); BUN 17 mg/dL (7-18); CALCIUM 9.2 mg/dL (8.5-10.1); CHLORIDE 105 mmol/L (98-107); CO2 31 mmol/L (21-32); GLUCOSE 86 mg/dL (74-106); POTASSIUM 3.8 mmol/L (3.5-5.1); SODIUM 140 mmol/L (136-145)
[2018-08-29 14:03] LABS: ALBUMIN 3.1 g/dL (3.4-5.0); MAGNESIUM 1.6 mg/dL (1.8-2.4); PHOSPHORUS 4.6 mg/dL (2.5-4.9); SGOT 31 U/L (15-37); SGPT 37 U/L (30-65); TOTAL BILIRUBIN 0.2 mg/dL (<0.1-1.0); TOTAL PROTEIN 6.2 g/dL (6.4-8.2); TROPONIN-I <0.06 ng/mL (<0.06)
[2018-08-29] MEDS ORDERED: MOBIC7.5 MG PO (14:53)
[2018-08-29] MEDS ORDERED: BENTYL 10 MG CA10 M1 PO (14:54)
[2018-08-29] MEDS ORDERED: MIDODRINE HCL2.5 M1 PO (14:55)
[2018-08-29] MEDS ORDERED: CYMBALTA20 MG PO (14:56)
[2018-08-29] MEDS ORDERED: FLEXERIL PO (14:56)
[2018-08-29] MEDS ORDERED: TRAMADOL 50 MG50 MG PO (14:57)
[2018-08-29 15:08] LABS: URINE BILIRUBIN NEGATIVE (Negative); URINE BLOOD NEGATIVE (Negative); URINE CLARITY CLEAR; URINE COLOR YELLOW; URINE GLUCOSE-RANDOM* NEGATIVE (Negative); URINE KETONES NEGATIVE (Negative); URINE LEUKOCYTES-REFLEX NEGATIVE (Negative); URINE NITRITE-REFLEX NEGATIVE (Negative); URINE PROTEIN (DIPSTICK) NEGATIVE (Negative)
[2018-08-29] MEDS ORDERED: NONFORMULARY (15:29)
[2018-08-29] MEDS ORDERED: ZPAK PO (15:34)
[2018-08-29 15:44] VITALS: BP 98/69
== END 2018-08-29 15:45 | disposition home or self-care (01) ==
LOC: ER 12:33
PROVIDERS: Physician Assistant
DX: I95.9 Hypotension, unspecified (principal); K21.9 Gastro-esophageal reflux disease without esophagitis; Z87.442 Personal history of urinary calculi; Z90.710 Acquired absence of both cervix and uterus; Z88.5 Allergy status to narcotic agent; Z88.1 Allergy status to other antibiotic agents; Z88.8 Allergy status to other drugs, medicaments and biological substances

== ENCOUNTER → 2018-08-29 | Outpatient (CLI) | payer OTHER ==
[~2018-08-29] VITALS: Ht 160 cm; Wt 85.0 kg
[~2018-08-29] MED LIST changes: +FLEXERIL PO; +MIDODRINE HCL2.5 M1 PO; +MOBIC7.5 MG PO; +NONFORMULARY; +OXYCODONE-ACET1 EACH PO; +ZPAK PO
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
[2018-08-29 11:32] VITALS: BP 91/57
--- NOTE | 2018-08-29 11:47 | NUR ---
Pain Clinic Assessment: 1. History of Osteoarthritis: Not Applicable History of Rheumatoid Arthritis: Not Applicable 2. Height: 5 ft. 3 in. 160.0 cm. Weight: 187.4 lb. oz. 85.004 kg. Patient's BMI: 33.2 3. Vital Signs: BP: 91/57 Pulse: 82 Resp: 14 Temp: 02 Sat: 97 ECG Mon: 4. Pain Intensity: 7 5. Fall Risk: Dizziness: Y Needs help standing or walking: N Fallen in the last 3 months: N Fall risk comments: 6. Patient on Blood Thinner: None 7. History of Hypertension: N 8. Opioid Therapy greater than 6 weeks: Y Opiate Contract Signed: 11/03/15 9. Risk Assessment Tool Provided: LOW RISK 2/3 10. Functional Assessment Tool: 11. Recreational Drug Use: Never Drug Type: Tobacco Use: Never Smoker Tobacco Type: Amount or Packs/day: How Many Years: Alcohol Use: No Frequency: Quant:
[2018-08-29 11:51] VITALS: BP 86/64
--- NOTE | 2018-08-29 17:03 | EKG ---
[place] [address] [employer] [facility] [place] [address] ELECTROCARDIOGRAM REPORT Name: PATRICIA DURHAM GARRY Room #: REG CLI [facility]#: [id number] ������������������ Admission: 08/29/18 ������������������ Attend Phys: Reynaldo Aaron MD Discharge: ������������������ Date of : 60 Report #: [id number] ����������������������������������������������������������������� [id number] THIS REPORT FOR: //name// [facility] Test Date: 2018-08-29 Test Time: 12:12:25 Pat Name: PATRICIA DURHAM Department: Room: Gender: F Chief Analytics Officer: Daisha CAPPS : 1960 Requested By: Reynaldo Aaron Order Number: [id number] MD: Elijah Dinero Measurements Intervals [place] Rate: 68 P: 57 OK: 143 QRS: -7 QRSD: 88 T: 97 QT: 397 QTc: 423 Interpretive Statements Sinus rhythm Nonspecific T wave abnormality Compared to ECG 11/02/2010 02:43:50 T-wave abnormality is now present Sinus bradycardia no longer present Electronically Signed On 08-29-2018 17:02:55 CDT by Elijah Dinero [email or web address] ��������������������������������������������� <ELECTRONICALLY SIGNED> ���������������������������������������� By: Elijah Dinero MD, [facility] ��������������������������������������������� 08/29/18 1702 11 11 Elijah Dinero MD, [facility] /EPI
== END ==
LOC: PAIN 06:59
DX: M54.16 Radiculopathy, lumbar region (principal); G89.4 Chronic pain syndrome; M96.1 Postlaminectomy syndrome, not elsewhere classified; E66.9 Obesity, unspecified; I95.9 Hypotension, unspecified; Z79.899 Other long term (current) drug therapy; Z79.891 Long term (current) use of opiate analgesic; Z68.33 Body mass index [BMI] 33.0-33.9, adult; Z86.2 Personal history of diseases of the blood and blood-forming organs and certain disorders involving the immune mechanism

== ENCOUNTER → 2018-11-21 | Outpatient (CLI) | payer OTHER ==
[~2018-11-21] MED LIST changes: +FLEXERIL PO; +MIDODRINE HCL2.5 M1 PO; +MOBIC7.5 MG PO; +NONFORMULARY; +ZPAK PO
== END ==
LOC: RAD 12:39
DX: M19.041 Primary osteoarthritis, right hand (principal)

== ENCOUNTER → 2019-02-12 | Outpatient (CLI) | payer OTHER ==
[~2019-02-12] VITALS: Ht 162.6 cm; Wt 77.1 kg
[~2019-02-12] MED LIST changes: +ACYCLOVIR 400400 MG PO; +LIDOCAINE1 EACH TRANSDERM
[2019-02-12 10:39] VITALS: BP 102/60
--- NOTE | 2019-02-12 11:07 | NUR ---
Pain Clinic Assessment: 1. History of Osteoarthritis: Not Applicable History of Rheumatoid Arthritis: Not Applicable 2. Height: 5 ft. 4 in. 162.6 cm. Weight: 170.0 lb. oz. 77.112 kg. Patient's BMI: 29.2 3. Vital Signs: BP: 102/60 Pulse: 81 Resp: 20 Temp: 02 Sat: 98 ECG Mon: 4. Pain Intensity: 8 5. Fall Risk: Dizziness: Y Needs help standing or walking: N Fallen in the last 3 months: N Fall risk comments: 6. Patient on Blood Thinner: None 7. History of Hypertension: Y 8. Opioid Therapy greater than 6 weeks: Y Opiate Contract Signed: 11/03/15 9. Risk Assessment Tool Provided: MOD-4 10. Functional Assessment Tool: 11. Recreational Drug Use: Never Drug Type: Tobacco Use: Never Smoker Tobacco Type: Amount or Packs/day: How Many Years: Alcohol Use: No Frequency: Quant:
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
== END ==
LOC: PAIN 06:53
DX: S80.12XA Contusion of left lower leg, initial encounter (principal); M54.16 Radiculopathy, lumbar region; R10.9 Unspecified abdominal pain; E66.9 Obesity, unspecified; I10 Essential (primary) hypertension; R42 Dizziness and giddiness; Z79.891 Long term (current) use of opiate analgesic; V89.2XXA Person injured in unspecified motor-vehicle accident, traffic, initial encounter; Y93.89 Activity, other specified; Y92.89 Other specified places as the place of occurrence of the external cause; Y99.8 Other external cause status

== ENCOUNTER → 2019-02-21 | Outpatient (CLI) | payer OTHER ==
[~2019-02-21] MED LIST changes: +OXYCODONE-APAP1 TAB PO; +TRAZODONE HCL100 MG PO
== END ==
LOC: HYPER 02-05 06:48
DX: S80.12XA Contusion of left lower leg, initial encounter (principal); S80.11XA Contusion of right lower leg, initial encounter; K21.9 Gastro-esophageal reflux disease without esophagitis; L03.115 Cellulitis of right lower limb; R60.0 Localized edema; F41.9 Anxiety disorder, unspecified; F32.9 Major depressive disorder, single episode, unspecified; Z90.710 Acquired absence of both cervix and uterus; X58.XXXA Exposure to other specified factors, initial encounter; Y93.89 Activity, other specified; Y92.89 Other specified places as the place of occurrence of the external cause; Y99.8 Other external cause status

== ENCOUNTER → 2019-04-30 | Outpatient (CLI) | payer OTHER ==
[~2019-04-30] VITALS: Ht 162.6 cm; Wt 75.0 kg
[2019-04-30 13:32] VITALS: BP 117/78
--- NOTE | 2019-04-30 13:38 | NUR ---
Pain Clinic Assessment: 1. History of Osteoarthritis: Not Applicable History of Rheumatoid Arthritis: Not Applicable 2. Height: 5 ft. 4 in. 162.6 cm. Weight: 165.4 lb. oz. 75.025 kg. Patient's BMI: 28.4 3. Vital Signs: BP: 117/78 Pulse: 74 Resp: 16 Temp: 02 Sat: 99 ECG Mon: 4. Pain Intensity: 8 5. Fall Risk: Dizziness: N Needs help standing or walking: N Fallen in the last 3 months: N Fall risk comments: 6. Patient on Blood Thinner: None 7. History of Hypertension: Y 8. Opioid Therapy greater than 6 weeks: Y Opiate Contract Signed: 11/03/15 9. Risk Assessment Tool Provided: MOD-4 10. Functional Assessment Tool: / 11. Recreational Drug Use: Never Drug Type: Tobacco Use: Never Smoker Tobacco Type: Amount or Packs/day: How Many Years: Alcohol Use: No Frequency: Quant:
--- NOTE | 2019-05-01 12:59 | HPC ---
[facility] [place] [address] [address] [place] [address] PAIN MANAGEMENT CONSULTATION Name: PATRICIA DURHAM GARRY Room #: REG [facility]..#: [id number] Admission: 04/30/19 Attend Phys: Teresa Son Discharge: Date of : 60 Report #: [id number] THIS REPORT FOR: //name// CC: Teresa Aaron MD DATE OF SERVICE: 04/30/2019 CHIEF COMPLAINT: Chronic abdominal pain, chronic back pain, status post laminectomy. HISTORY OF PRESENT ILLNESS: This is a 59-year-old female who returns to the pain clinic today for refill of her medications. She is also here reporting that she may have multiple myeloma. She has seen a bushel girl, Dr. Mcqueen and is going to see a senior storage engineer next week. The zipper setter lockstitch and the bushel girl have told her she may possibly have myeloma, but she does not know a 100%. They are still in the testing phases. She has brought some lab work with her today. She would like Dr. Reynaldo Aaron to review with her. She states that her pain is an 8/10 today, it is in her normal lower back and abdomen, but she is having deep bone pain in her femurs per her report and occasionally has pain in her right rib cage as well, as a sharp, stabbing, burning, aching feeling. Her pain is worse with ambulation and eating. She feels that her medications are somewhat helpful, though she states nothing is helping her "bone pain." She continues to lose some weight. She is down to 165 pounds today, she was 181 in November. She feels like she steadily she loses 2-3 pounds a week per her report. Today, she would like refills of her medications as well as going over her lab results. ALLERGIES: DEMEROL, HYDROMORPHONE, MORPHINE, ERYTHROMYCIN, VERSED, AMBIEN AND ADHESIVES. CURRENT LIST OF MEDICATIONS: Oxycodone 7.5/325, Valium 5 mg p.r.n., acyclovir, Flexeril, Cymbalta, Bentyl, Inderal, Zofran, pilocarpine, Neurontin, Myrbetriq, trazodone, estrogen, vitamin B12, Relistor and Protonix. PQRS: 1. She has arthritic changes in her cervical and lumbar spine as well as bilateral knees. She denies any rheumatoid arthritis. 2. Height is 5 feet 4 inches, weight is 165, BMI is 28. 3. Vital signs 117/78, pulse is 74, respirations 16, oxygen sat is 99. 4. Pain score is 8/10. 5. Denies dizziness, does not need help walking or standing, has not fallen in the last 3 months. 6. The patient is not on any blood thinners, but does take medicine for hypertension. Opioid therapy is greater than 6 weeks; therefore, an opioid [address] [address] PAIN MANAGEMENT CONSULTATION Name: HERMINIOPATRICIA JO Room #: REG [facility] Rios#: [id number] Admission: 04/30/19 Attend Phys: Teresa Son Discharge: Date of : 60 Report #: [id number] signed contract is on the chart. Risk assessment is moderate. Functional assessment is 55/70. 7. Recreational drug use, she denies. She is not a smoker. Does not drink alcohol. According to the prescription monitoring system, the patient is filling appropriately from Dr. Reynaldo Aaron and she is not due for her medications today. There is a recent drug screen on the chart that is appropriate as well. PHYSICAL EXAMINATION: GENERAL: This is a well-developed, well-hydrated 59-year-old female who appears her stated age, slightly depressed today, placing her pain score at 8/10. HEENT: Normocephalic, atraumatic. Extraocular eye muscles are intact with mild nystagmus. Mucous membranes are moist. NECK: Without adenopathy or JVD. MUSCULOSKELETAL: She moves from sitting to standing without any difficulty. She has a slow normal gait. She has tenderness in her abdomen in the lower quadrants, complains of deep pain in her bilateral femurs today. Lower extremity strength judged to be 5/5 in all major muscle groups. IMPRESSION: 1. Chronic intractable abdominal pain, status post abdominal surgeries. 2. Chronic low back pain with radiculopathy, status post lumbar laminectomy. 3. History of Sjogren's syndrome. 4. Hypertension. 5. Management of high risk medications under terms of written opioid agreement. 6. Possible diagnosis of multiple myeloma, continuing in the testing phases. We reviewed the fact that opiate medications are being used to provide analgesia adequate to support activities of daily living, not attempting to achieve a specific pain score on the 0-10 Visual Analog Scale. The current opiate medications are providing sufficient analgesia to allow the patient to participate in activities of daily living. The patient is not exhibiting any aberrant behavior suggestive of drug diversion. The patient is not having any adverse reactions to medications. The patient is not suffering from daytime somnolence or mental acuity changes. The patient is managing opiate-induced constipation with appropriate rysg-uhd-oiavrpu agents and dietary considerations. The patient was counseled on concern for caution with operating a motor vehicle while using opiate medications. PLAN: 1. We discussed treatment options with the patient today. Dr. Aaron was present for part of the discussion; the patient wanted him to review lab work. He reports that it is best discussed with her bushel girl. She was instructed to call their office and schedule an appointment or ask for the physician to go over the lab work instead of the nurse on the phone. The patient verbalizes [address] [address] PAIN MANAGEMENT CONSULTATION Name: PATRICIA DURHAM Room #: REG JOSE Rios#: [id number] Admission: 04/30/19 Attend Phys: Teresa Son Discharge: Date of : 60 Report #: [id number] understanding. 2. We discussed nonsteroidal anti-inflammatories as a medication that might be beneficial for helping with her bone pain but due to her high creatinine, we would like her to discuss this with her senior storage engineer next week, so we will not offer any new medications until after that visit. The patient verbalizes understanding. 3. We will continue the patient on her current pain medications of Percocet 7.5/325, #120 as well as her Valium 5 mg 3 times a day, #90 with 2 refills. These medications were all electronically sent to her pharmacy of [facility]. 2. The patient is instructed to call us as needed. Dr. Aaron did see the patient and collaborated care today. The patient will return in 3 months. <ELECTRONICALLY SIGNED> By: Teresa Son 05/01/19 1259 [id number] Teresa barnard
== END ==
LOC: PAIN 06:53
DX: R10.9 Unspecified abdominal pain (principal); M54.5 Low back pain; G89.29 Other chronic pain; I10 Essential (primary) hypertension; Z79.891 Long term (current) use of opiate analgesic; Z79.899 Other long term (current) drug therapy

== ENCOUNTER → 2019-05-01 | Outpatient (CLI) | payer OTHER | LOC: NUC 04-25 16:19 | DX: M81.0 Age-related osteoporosis without current pathological fracture (principal); M85.89 Other specified disorders of bone density and structure, multiple sites; Z88.8 Allergy status to other drugs, medicaments and biological substances; Z91.040 Latex allergy status ==

== ENCOUNTER → 2019-06-29 | Outpatient (CLI) | payer OTHER | LOC: ULTRA 08:59 | DX: R10.9 Unspecified abdominal pain (principal) ==

== ENCOUNTER → 2019-07-02 | Outpatient (CLI) | payer OTHER ==
[~2019-07-02] VITALS: Ht 162.6 cm; Wt 81.6 kg
[2019-07-02 14:32] VITALS: BP 99/62
--- NOTE | 2019-07-02 14:53 | NUR ---
Pain Clinic Assessment: 1. History of Osteoarthritis: Not Applicable History of Rheumatoid Arthritis: Not Applicable 2. Height: 5 ft. 4 in. 162.6 cm. Weight: 179.8 lb. oz. 81.557 kg. Patient's BMI: 30.8 3. Vital Signs: BP: 99/62 Pulse: 58 Resp: 20 Temp: 02 Sat: 100 ECG Mon: 4. Pain Intensity: 8 5. Fall Risk: Dizziness: Y Needs help standing or walking: N Fallen in the last 3 months: N Fall risk comments: 6. Patient on Blood Thinner: XARELTO 7. History of Hypertension: Y 8. Opioid Therapy greater than 6 weeks: Y Opiate Contract Signed: 11/03/15 9. Risk Assessment Tool Provided: MOD-4 10. Functional Assessment Tool: 11. Recreational Drug Use: Never Drug Type: Tobacco Use: Never Smoker Tobacco Type: Amount or Packs/day: How Many Years: Alcohol Use: No Frequency: Quant:
--- NOTE | 2019-07-03 08:32 | HPC ---
[facility] [address] [place] [place] [address] PAIN MANAGEMENT CONSULTATION Name: PATRICIA DURHAM GARRY Room #: REG [facility] M..#: [id number] Admission: 07/02/19 Attend Phys: Teresa Son Discharge: Date of : 60 Report #: [id number] THIS REPORT FOR: cc: Fredrick Kumar MD, Neal A. MD Hocker,Teresa FORMAN ~ THIS REPORT FOR: //name// CC: Teresa Kumar DATE OF SERVICE: 07/02/2019 CHIEF COMPLAINT: Chronic abdominal pain, chronic back pain, status post laminectomy. HISTORY OF PRESENT ILLNESS: This is a 59-year-old female who returns to the Pain Clinic today for refills of her medication. She reports that she was in the Emergency Room at [facility] throughout the weekend for helping with control of her "bone pain." The patient states that they gave her IV fluids, did not know of any medications that they gave her intravenously and was not given a prescription upon dismissal. The patient is reporting her pain score is 8/10 today in her lower back, abdomen and lower extremities. These are her usual pain generators; it is a sharp, aching, burning, numbness pain, worse with eating. She feels the medications are beneficial in controlling her pain. She is reporting that she is having difficulty getting her prescription filled from the [facility], though she believes she has another month of medicines on file. The patient is giving me a synopsis of her recent medical issues. She reports that they are still ruling out multiple myeloma. She reports the doctors are thinking there is a different primary disease, unsure if it is autoimmune disease or hyperparathyroidism. She is still undergoing tests. She does not have any documentation with her today. Per reports of any of these diagnosis, this is all per her report. We will try to obtain some records from Dr. Kumar to verify some of this information and to see what may be causing some of her issues. ALLERGIES: DEMEROL, HYDROMORPHONE, MORPHINE, ERYTHROMYCIN, ADHESIVE, VERSED, AND AMBIEN. MEDICATIONS: Please see lengthy med list in computer that was reconciled. PQRS: 1. She has arthritic changes in her cervical and lumbar spine as well as bilateral knees. She denies any rheumatoid arthritis. [address] [address] PAIN MANAGEMENT CONSULTATION Name: HERMINIOPATRICIA GARRY Room #: REG [facility] Rios#: [id number] Admission: 07/02/19 Attend Phys: Teresa Son Discharge: Date of : 60 Report #: [id number] 2. Height is 5 feet 4 inches, weight is 179, BMI is 30. This is an increase of 12 pounds since her last visit. 3. Vital signs 99/64, pulse is 58, respirations 20, oxygen sat is 100. 4. Pain score is 8/10. 5. Complains of dizziness, does not need help walking or standing, has not fallen in the last 3 months. 6. The patient is on Xarelto as well as hypertension medicines. 7. Opioid therapy is greater than 6 weeks; therefore, an opioid signed contract is on the chart. Risk assessment is moderate. Functional assessment is 55/70. 8. Recreational drug use, she denies. She is not a smoker and does not drink alcohol. According to the prescription monitoring system, the patient should have her 8-week prescription at the pharmacy. I did call [facility] and verified that it is there on file. They will fill that medication for her today. She is filling in a timely fashion and only by 1 provider, Dr. Reynaldo Aaron at one pharmacy. According to the CDC guidelines, her morphine mEq is 45 MMEs. There is a drug screen on the chart that is appropriate as well. PHYSICAL EXAMINATION: GENERAL: This is a well-hydrated, well-nourished 59-year-old who appears her stated age, slightly depressed today, at times rambling about her disease processes, then slowly going back to why she is visiting with us today. Her pain score is 8/10 today. HEENT: Normocephalic, atraumatic. Extraocular eye muscles are intact. Mucous membranes are moist. MUSCULOSKELETAL: She moves from sitting to standing without difficulty, though slowly and she does have a normal gait. She has tenderness in her lower back radiating down her bilateral legs. Complains of tenderness in her abdomen in the lower quadrants it as well. She has two areas of ecchymosis on her forearms from recent IV placements. IMPRESSION: 1. Chronic intractable abdominal pain, status post abdominal surgeries. 2. Chronic low back pain with radiculopathy, status post lumbar laminectomy. 3. History of Sjogren syndrome. 4. Hypertension. 5. Management of high risk medications under terms of written opioid agreement. We reviewed the fact that opiate medications are being used to provide analgesia adequate to support activities of daily living, not attempting to achieve a specific pain score on the 0-10 Visual Analog Scale. The current opiate medications are providing sufficient analgesia to allow the patient to participate in activities of daily living. The patient is not exhibiting any aberrant behavior suggestive of drug diversion. The patient is not having any adverse reactions to medications. The patient is not suffering from daytime [address] [address] PAIN MANAGEMENT CONSULTATION Name: PATRICIA DURHAM Room #: REG [facility]#: [id number] Admission: 07/02/19 Attend Phys: Teresa Son Discharge: Date of : 60 Report #: [id number] somnolence or mental acuity changes. The patient is managing opiate-induced constipation with appropriate sflz-vei-fedrmjf agents and dietary considerations. The patient was counseled on concern for caution with operating a motor vehicle while using opiate medications. PLAN: 1. We discussed treatment options with the patient today. The patient has told me numerous diagnoses that she is having workups for through various doctors of a ct scan technician and nozzle worker as well as her primary care doctor. We will try to obtain records from her primary care doctor for Dr. Aaron to peruse at her next appointment. 2. I took the liberty of calling [facility], they do have a prescription on file that they will fill for her today as an 8-week release of her oxycodone and the last refill of her diazepam. Based on this information, we will have Dr. Aaron send electronically her oxycodone 7.5/325, #120 for 4 and 8-week release as well as 2 months of diazepam. The patient will return in September, if not before to discuss problems with health issues with Dr. Reynaldo Aaron. The patient encouraged to make an appointment with him for her next visit. Dr Aaron collaborated care today. 3. The patient denies any problems with constipation, though at times she has some daytime sleepiness. This may be related to all of her medications that she currently is taking. <ELECTRONICALLY SIGNED> By: Teresa Son 07/03/19 0832 [id number] Teresa Son /nt
== END ==
LOC: PAIN 06:44
DX: M54.16 Radiculopathy, lumbar region (principal); R10.9 Unspecified abdominal pain; G89.29 Other chronic pain; I10 Essential (primary) hypertension; Z88.1 Allergy status to other antibiotic agents; Z88.6 Allergy status to analgesic agent; Z88.8 Allergy status to other drugs, medicaments and biological substances; Z98.890 Other specified postprocedural states

== ENCOUNTER → 2019-09-24 | Outpatient (CLI) | payer OTHER ==
[~2019-09-24] VITALS: Ht 162.6 cm; Wt 76.3 kg
[~2019-09-24] MED LIST changes: +LEVETIRACETAM1000 MG PO
[2019-09-24 11:30] VITALS: BP 97/63
--- NOTE | 2019-09-24 11:44 | NUR ---
Pain Clinic Assessment: 1. History of Osteoarthritis: BACK-SPINE History of Rheumatoid Arthritis: DENIES 2. Height: 5 ft. 4 in. 162.6 cm. Weight: 168.2 lb. oz. 76.295 kg. Patient's BMI: 28.9 3. Vital Signs: BP: 97/63 Pulse: 62 Resp: 14 Temp: 02 Sat: 99 ECG Mon: 4. Pain Intensity: 6-7 5. Fall Risk: Dizziness: Y Needs help standing or walking: N Fallen in the last 3 months: Y Fall risk comments: 6. Patient on Blood Thinner: XARELTO 7. History of Hypertension: N 8. Opioid Therapy greater than 6 weeks: Y Opiate Contract Signed: 11/03/15 9. Risk Assessment Tool Provided: MOD-4 10. Functional Assessment Tool: 11. Recreational Drug Use: Never Drug Type: Tobacco Use: Never Smoker Tobacco Type: Amount or Packs/day: How Many Years: Alcohol Use: Yes Frequency: Special Occasions Quant:
--- NOTE | 2019-09-25 14:57 | HPC ---
[facility] [address] [place] [address] PAIN MANAGEMENT CONSULTATION Name: PATRICIA DURHAM Room #: REG [facility]..#: [id number] Admission: 09/24/19 Attend Phys: Teresa Son Discharge: Date of : 60 Report #: [id number] THIS REPORT FOR: cc: Fredrick Kumar MD, Neal A. MD Hocker,Teresa FORMAN ~ CC: Reynaldo DAHL MD DATE OF SERVICE: 09/24/2019 CHIEF COMPLAINT: Chronic abdominal pain, chronic back pain, status post laminectomy. HISTORY OF PRESENT ILLNESS: This is a 59-year-old female who returns to the pain clinic today for a refill of her opioid medications that she uses to help treat her ongoing low back pain. Today, the patient is complaining of pain of 6-7. She feels that her back pain is fairly well maintained. She does complain today of some increasing abdominal pain. She feels like she is having more episodes of nausea and vomiting. She is also complaining of left knee pain. The patient today states that her pain is an aching, burning, numbness, worse with any eating food, but feels like her medications are beneficial as long as she can keep them down. Occasionally, she reports she does vomit whole pills. The patient does report she is seeing a neurologist, Dr. Wenceslao Dahl. He did an EEG and a brain scan, which she reports were negative, but then reports to me, she has complex partial seizure disorder and has started on Keppra; after her episode a couple days ago, she has then increased to 1000 mg b.i.d. She reports she has not been having any of her seizure type activity as she describes as a confusion and heaviness in her legs, arms and then head where then she blacks out per her report. The patient reports to me that she still is on gabapentin and that Dr. Dahl did not stop any of her medications. The patient reports that she is continuing to see her seater assembler as well as her linux devops engineer. They are trying to still determine if she has an autoimmune disorder or multiple myeloma. She said nothing has been ruled out and no changes in her polypharmacy medications have been decreased. ALLERGIES: DEMEROL, HYDROMORPHONE, MORPHINE, ERYTHROMYCIN, ADHESIVE TAPE, VERSED, DILAUDID, AND AMBIEN. MEDICATIONS: Keppra 1000 mg b.i.d., oxycodone 7.5/325 q.i.d., diazepam 5 mg t.i.d., acyclovir, Flexeril, Cymbalta 20 mg, Bentyl p.r.n., propranolol, Zofran, pilocarpine, gabapentin 300 mg t.i.d., Myrbetriq, trazodone 100 mg at bedtime, [address] [address] PAIN MANAGEMENT CONSULTATION Name: PATRICIA DURHAM GARRY [facility] [id number] Admission: 09/24/19 Attend Phys: Teresa Son Discharge: Date of : 60 Report #: [id number] vitamin B12 monthly, Relistor p.r.n. and Protonix. PQRS: 1. She has arthritic changes in her cervical and lumbar spine as well as her knees. Denies any rheumatoid arthritis. 2. Height is 5 feet 4 inches, weight is 168, down 8 pounds since our last visit 3 months ago. BMI is 28. 3. Vital signs 97/63, pulse is 62, respirations 14, oxygen sat is 99. Pain score is 6-7. 4. Complains of slight dizziness, does not need help walking or standing. She has fallen in the last 3 months. 5. The patient is on blood thinner of Xarelto, but it was not listed in her medications, so I am unsure of that. The patient denies medicines for hypertension. 6. Opioid therapy is greater than 6 weeks; therefore, an opioid signed contract is on the chart. Risk assessment tool is moderate. Functional assessment is 55/70. 7. Recreational drug use, she denies. She is not a smoker and does occasionally drink alcohol. According to the prescription monitoring system, the patient is filling her opioid medications appropriately, is due to fill those this week. According to the CDC guidelines, her morphine mEq is 45 MMEs per day. The patient though is on numerous centrally acting medications, 7 to be exact, 2 are scheduled medications. PHYSICAL EXAMINATION: GENERAL: This is alert and orientated, well-hydrated 59-year-old who appears her stated age, placing her current pain score today at 6-7. HEENT: Normocephalic, atraumatic. Extraocular eye muscles are intact. Mucous membranes are moist. MUSCULOSKELETAL: She moves from sitting to standing without any difficulty, though she does have a slow gait. She has tenderness in her lower back that radiates into her bilateral legs. Also complains of tenderness in her lower quadrants of her abdomen. Left knee tenderness is noted as well. IMPRESSION: 1. Chronic intractable abdominal pain, status post abdominal surgeries. 2. Chronic low back pain with radiculopathy, status post lumbar laminectomy. 3. History of Sjogren syndrome. 4. Hypertension. 5. Management of high risk medications under terms of written opioid agreement. 6. Complex partial seizure disorder per the patient's report. 7. Polypharmacy, on 7 centrally acting medications. We reviewed the fact that opiate medications are being used to provide analgesia [facility] [address] [place] [address] PAIN MANAGEMENT CONSULTATION Name: PATRICIA DURHAM GARRY [facility]#: [id number] Admission: 09/24/19 Attend Phys: Teresa Son Discharge: Date of : 60 Report #: [id number] adequate to support activities of daily living, not attempting to achieve a specific pain score on the 0-10 Visual Analog Scale. The current opiate medications are providing sufficient analgesia to allow the patient to participate in activities of daily living. The patient is not exhibiting any aberrant behavior suggestive of drug diversion. The patient is not having any adverse reactions to medications. The patient is not suffering from daytime somnolence or mental acuity changes. The patient is managing opiate-induced constipation with appropriate ekya-gep-qwyukcs agents and dietary considerations. The patient was counseled on concern for caution with operating a motor vehicle while using opiate medications. PLAN: 1. We discussed treatment options with the patient today. Dr. Aaron was present for part of this discussion. The patient has been seen several doctors and obtaining medications from several per the list she provided to us today. She is on 7 centrally acting medications. I did question her if she was still on gabapentin despite starting Keppra. She reports she is on both. With discussion with Dr. Aaron, we encouraged her to try to decrease some of her centrally acting medications. The patient will start by decreasing her gabapentin to 2 a day for 5 days, then to 1 a day for 5 days, then off. Next, she will discuss with her doctor that prescribes her Cymbalta to try and stop this medication as well. She does take trazodone at bedtime as her other antidepressant that will eliminate 2 centrally acting medications if she is able. The patient verbalizes understanding. 2. We will refill her oxycodone 7.5/325, #120 for today and 4-week and 8-week supply as well as her diazepam 5 mg #90 with 2 additional refills. The patient has been on this combination for several years and had issues with the benzodiazepine opioid complications. 3. The patient states she still does have problems at times with constipation and does occasionally continue her Relistor. 4. The patient is seen in collaboration with Dr. Reynaldo Aaron who did see her as well today. The patient informed to keep us up-to-date on new diagnosis or treatments as they arise. <ELECTRONICALLY SIGNED> By: Teresa Son 09/25/19 1457 [id number] Teresa Son /kavita
== END ==
LOC: PAIN 06:50
DX: R10.9 Unspecified abdominal pain (principal); M96.1 Postlaminectomy syndrome, not elsewhere classified; M54.16 Radiculopathy, lumbar region; M35.00 Sjogren syndrome, unspecified; F11.20 Opioid dependence, uncomplicated; G40.509 Epileptic seizures related to external causes, not intractable, without status epilepticus; I10 Essential (primary) hypertension; T50.902A Poisoning by unspecified drugs, medicaments and biological substances, intentional self-harm, initial encounter; Z88.1 Allergy status to other antibiotic agents; Z88.2 Allergy status to sulfonamides; Z88.5 Allergy status to narcotic agent; Z88.8 Allergy status to other drugs, medicaments and biological substances; Z91.048 Other nonmedicinal substance allergy status; Z79.899 Other long term (current) drug therapy

== ENCOUNTER → 2019-11-02 | Outpatient (CLI) | payer OTHER | LOC: CAT 12:24 | PROVIDERS: ATTEND Nurse Practitioner | DX: R10.32 Left lower quadrant pain (principal); R35.0 Frequency of micturition; J98.11 Atelectasis; Z90.710 Acquired absence of both cervix and uterus; Z90.49 Acquired absence of other specified parts of digestive tract ==

== ENCOUNTER → 2019-11-08 | Outpatient (CLI) | payer OTHER | LOC: ULTRA 10:39 | PROVIDERS: ATTEND Nurse Practitioner | DX: N26.1 Atrophy of kidney (terminal) (principal); D18.09 Hemangioma of other sites; I70.0 Atherosclerosis of aorta; Z90.49 Acquired absence of other specified parts of digestive tract ==

== ENCOUNTER → 2019-12-17 | Outpatient (CLI) | payer OTHER ==
[~2019-12-17] VITALS: Ht 162.6 cm; Wt 81.4 kg
[~2019-12-17] MED LIST changes: +LAMICTAL100 MG PO; +VITAMIN D310 MC2 PO
--- NOTE | ~2019-12-17 | HPC ---
[facility] [address] PAIN MANAGEMENT CONSULTATION Name: PATRICIA DURHAM GARRY Room #: REG [facility].#: [id number] Admission: 12/17/19 Attend Phys: Reynaldo Aaron MD Discharge: Date of : 60 Report #: [id number] THIS REPORT FOR: cc: Fredrick Kumar MD, Neal A. MD Morgan, Richard L. MD ~ CC: Levi Aaron DATE OF SERVICE: 12/17/2019 CHIEF COMPLAINT: "I feel foggy and lightheaded." Chronic abdominal pain, status post 25+ abdominal surgeries, diffuse skeletal pain. I am seeing the patient for pain management. She has been a longstanding patient of our clinic. When I first saw her close to a decade ago, she had been complaining of abdominal pain, which had been treated repeatedly with surgery. We did establish as our goal to keep her out to the operating room and I am happy to report that we have been successful in that goal. She has had no further abdominal surgeries. Many of those surgeries were exploratory laparotomies based upon her symptoms. The result of the surgeries was identification of scar tissue, which of course was self-perpetuating. Like many with chronic abdominal pain with multiple ongoing chronic complaints, she had a significant past medical history. She was initiated on an opioid agreement and over the years, we provided her with oxycodone, which has worked effectively to control her pain. She has also been on diazepam 5 mg q. 8 hours as long as she has been my patient. Obviously the combination of benzodiazepine and opioid is concerning, she has shown inability to take them effectively. Over the last year or two, she has started to receive additional centrally acting medications. She describes assessment for seizure with Dr. Dahl. These are not grand mal, but may be some sort of petit mal seizure if there are seizures at all. They have been witnessed and by description sounds to be like a petit mal seizure. She just blanks out. Dr. Dahl has had additional medicines to her regimen and she currently is now on an unacceptable load of centrally acting medications in my opinion. Medications were reviewed. Lamotrigine 100 mg b.i.d., Keppra 1000 mg b.i.d., [address] [address] PAIN MANAGEMENT CONSULTATION Name: PATRICIA DURHAM GARRY Room #: REG CLI [facility].#: [id number] Admission: 12/17/19 Attend Phys: Reynaldo Aaron MD Discharge: Date of : 60 Report #: [id number] cyclobenzaprine 10 mg q.6 hours p.r.n. spasm, Cymbalta 20 mg daily, Bentyl 20 mg 4 times daily, gabapentin 300 mg t.i.d., trazodone 100 mg at bedtime, pantoprazole, Relistor, vitamin B, estrogen cream, pilocarpine, Zofran, Inderal, acyclovir, cholecalciferol. ALLERGIES: MEPERIDINE, HYDROMORPHONE, MORPHINE ANALOGUES, SUCRALFATE, ADHESIVE, LATEX. ZOLPIDEM causes sleepwalking. REVIEW OF SYSTEMS: Positive for generalized all over discomfort. She describes it as aching pain in her bones. She also has left abdominal pain. PHYSICAL EXAMINATION: GENERAL: Her memory seems okay. She is pleasant and oriented today, but a bit lethargic. Eyelids appear heavy. VITAL SIGNS: She is 5 feet 4 inches, 179 pounds, BMI of 30.8, blood pressure 98/76, pulse is 73, respirations 14 and O2 sat 99. She is wearing a mask for COVID restrictions. CHEST: Clear. CARDIAC: Rhythm is regular. She has diffuse tenderness throughout the torso and extremities. She has pain in the left lower quadrant with palpation. IMPRESSION: 1. Chronic intractable abdominal pain, status post multiple surgeries. 2. History of hypertension. She is now hypotensive relative to her normal. This may be medication related. 3. Severe polypharmacy. She is on 8 centrally acting medications. No wonder if she feels dizzy. 4. Partial seizure disorder as described by the patient. She has seen a neurologist, Dr. Wenceslao Dahl. 5. History of Sjogren's syndrome. RECOMMENDATIONS: 1. I will discuss her case with Dr. Kumar. 2. I cannot stop medicines and the opioid and benzodiazepine class that she has been on for over 10 years, but I can certainly taper them. I am reducing her oxycodone from 7.5/325 to 5/325 three tablets daily, diazepam from 5 mg 3 times daily to 2 times daily. This will hopefully prevent withdrawal. 3. We would strongly recommend that she go off of one antidepressant either trazodone or Cymbalta. 4. Strongly recommend that she go off of Keppra unless Dr. Dahl feels it is absolutely necessary as it adds to her polypharmacy load. [facility] [address] [place] [address] PAIN MANAGEMENT CONSULTATION Name: PATRICIA DURHAM GARRY Room #: REG JOSE Gabriel#: [id number] Admission: 12/17/19 Attend Phys: Reynaldo Aaron MD Discharge: Date of : 60 Report #: [id number] Followup visit planned in 2 months. By: [id number] Reynaldo Aaron MD /nt
[2019-12-17 13:28] VITALS: BP 98/67
--- NOTE | 2019-12-17 13:45 | NUR ---
Pain Clinic Assessment: 1. History of Osteoarthritis: BACK-SPINE History of Rheumatoid Arthritis: DENIES 2. Height: 5 ft. 4 in. 162.6 cm. Weight: 179.4 lb. oz. 81.375 kg. Patient's BMI: 30.8 3. Vital Signs: BP: 98/67 Pulse: 73 Resp: 14 Temp: 02 Sat: 99 ECG Mon: 4. Pain Intensity: 7-8 5. Fall Risk: Dizziness: Y Needs help standing or walking: N Fallen in the last 3 months: N Fall risk comments: 6. Patient on Blood Thinner: NONE 7. History of Hypertension: N 8. Opioid Therapy greater than 6 weeks: Y Opiate Contract Signed: 11/03/15 9. Risk Assessment Tool Provided: MOD-4 10. Functional Assessment Tool: 11. Recreational Drug Use: Never Drug Type: Tobacco Use: Never Smoker Tobacco Type: Amount or Packs/day: How Many Years: Alcohol Use: Yes Frequency: Quant:
== END ==
LOC: PAIN 06:55
PROVIDERS: ATTEND Anesthesiology Pain Medicine
DX: R10.9 Unspecified abdominal pain (principal); G89.4 Chronic pain syndrome; I10 Essential (primary) hypertension; Z79.899 Other long term (current) drug therapy; Z79.891 Long term (current) use of opiate analgesic; Z88.8 Allergy status to other drugs, medicaments and biological substances

== ENCOUNTER → 2019-12-27 | Outpatient (CLI) | payer OTHER | LOC: RAD 09:28 | DX: M47.814 Spondylosis without myelopathy or radiculopathy, thoracic region (principal); Z98.1 Arthrodesis status ==

== ENCOUNTER → 2019-12-27 | Outpatient (CLI) | payer OTHER | LOC: LAB 12-21 13:14 | PROVIDERS: ATTEND Family Medicine | DX: Z20.828 Contact with and (suspected) exposure to other viral communicable diseases (principal); R05 Cough; R06.02 Shortness of breath ==

== ENCOUNTER → 2020-02-12 | Outpatient (CLI) | payer OTHER ==
[~2020-02-12] VITALS: Ht 162.6 cm; Wt 80.5 kg
[2020-02-12 10:26] VITALS: BP 96/72
--- NOTE | 2020-02-12 10:42 | NUR ---
Pain Clinic Assessment: 1. History of Osteoarthritis: BACK-SPINE History of Rheumatoid Arthritis: DENIES 2. Height: 5 ft. 4 in. 162.6 cm. Weight: 177.4 lb. oz. 80.468 kg. Patient's BMI: 30.4 3. Vital Signs: BP: 96/72 Pulse: 64 Resp: 16 Temp: 02 Sat: 100 ECG Mon: 4. Pain Intensity: 7 5. Fall Risk: Dizziness: Y Needs help standing or walking: N Fallen in the last 3 months: N Fall risk comments: 6. Patient on Blood Thinner: NONE 7. History of Hypertension: N 8. Opioid Therapy greater than 6 weeks: Y Opiate Contract Signed: 11/03/15 9. Risk Assessment Tool Provided: MOD-4 10. Functional Assessment Tool: 11. Recreational Drug Use: Never Drug Type: Tobacco Use: Never Smoker Tobacco Type: Amount or Packs/day: How Many Years: Alcohol Use: No Frequency: Quant:
--- NOTE | 2020-02-13 09:40 | HPC ---
[facility] [address] [place] [address] PAIN MANAGEMENT CONSULTATION Name: PATRICIA DURHAM [id number] Admission: 02/12/20 Attend Phys: Teresa Son Discharge: Date of : 60 Report #: [id number] THIS REPORT FOR: cc: Fredrick Kumar MD, Neal A. MD Hocker, Amanda CNS ~ CC: Reynaldo Aaron MD DATE OF SERVICE: 02/12/2020 CHIEF COMPLAINT: Chronic abdominal pain, diffuse skeletal pain. HISTORY OF PRESENT ILLNESS: This is a 59-year-old female who returns to the pain clinic today to discuss her medications. She reports that since she last saw Dr. Aaron in November she has stopped numerous medications. She was upset with him for saying she was over medicated at her last visit, so she went home and stopped numerous medications without discussing them with her neurologist or her primary care doctor. Per her report today, she has stopped her Keppra, Cymbalta, Lamictal, and Flexeril. She states she has decreased her estrogen use as well as her Relistor use. She feels like she has not been having any seizure activity as a result of decreasing her medications. Today, she reports that she is not in a fog and feels not as overly medicated as she had been when she was here in November. She has decreased her oxycodone and Valium per his orders. The patient reports it was a rough month, but she does feel better as a result of decreasing her medications. Today, the patient is reporting a pain score of 7/10, most significantly in her lower back and abdomen. She does have some ongoing right chest wall discomfort from recent rib fractures. She states that eating as well as lying down, do increase her pain. She feels the medication has been beneficial, but that oxycodone 5/325 is not as effective as oxycodone 7.5/325 and she is requesting to change to that medication. She states that her constipation has been decreased with her decrease in her medications and polypharmacy; therefore, she has been taking Relistor very sparingly. ALLERGIES: DEMEROL, DILAUDID, MORPHINE, SUCRALFATE, ERYTHROMYCIN, ADHESIVE TAPE, VERSED, LATEX, AND AMBIEN. CURRENT LIST OF MEDICATIONS: Oxycodone 5/325 q.i.d., Valium 5 mg t.i.d., acyclovir, propranolol, pilocarpine, Myrbetriq, trazodone, estrogen, vitamin B12, Relistor and Protonix. PQRS: 1. She has diffuse osteoarthritis in her back and spine. Denies rheumatoid arthritis. 2. Height is 5 feet 4 inches, weight is 177, [place] 30[place] [address] PAIN MANAGEMENT CONSULTATION Name: PATRICIA DURHAM GARRY Room #: REG [facility]..#: [id number] Admission: 02/12/20 Attend Phys: Teresa Son Discharge: Date of : 60 Report #: [id number] 3. Vital signs; blood pressure 96/72, pulse is 64, respirations 16, oxygen sat is 100. 4. Pain score 7/10. 5. Fall risk, complains of slight dizziness, does not need help walking or standing, has not fallen in the last 3 months. The patient is not on any blood thinners or medicine for hypertension. 6. Her opioid therapy is greater than 6 weeks; therefore, an opioid signed contract is on the chart. Risk assessment is moderate. Functional assessment is 52/70. 7. Recreational drug use, she denies. She is not a smoker and does not drink alcohol. According to the prescription monitoring system, she is filling appropriately for her medications. She is due to fill those this week. Her morphine milliequivalent is 30 MME per day. PHYSICAL EXAMINATION: GENERAL: This is alert and orientated 59-year-old female who appears her stated age, answering questions appropriately. HEENT: Normocephalic, atraumatic. Extraocular eye muscles are intact. She is wearing a mask. ABDOMEN: Tenderness in her left upper quadrant. MUSCULOSKELETAL: She has diffuse tenderness throughout her torso and extremities, pain in her right rib area, radiates towards her back. IMPRESSION: 1. Chronic intractable abdominal pain, status post multiple surgeries. 2. History of hypertension. 3. Polypharmacy. 4. Partial seizure disorder as described by the patient. 5. History of Sjogren syndrome. 6. Management of opioid medications under terms of written agreement. We reviewed the fact that opiate medications are being used to provide analgesia adequate to support activities of daily living, not attempting to achieve a specific pain score on the 0-10 Visual Analog Scale. The current opiate medications are providing sufficient analgesia to allow the patient to participate in activities of daily living. The patient is not exhibiting any aberrant behavior suggestive of drug diversion. The patient is not having any adverse reactions to medications. The patient is not suffering from daytime somnolence or mental acuity changes. The patient is managing opiate-induced constipation with appropriate [id number]-aycwvms agents and dietary considerations. The patient was counseled on concern for caution with operating a motor vehicle while using opiate medications. A physical exam was performed and the patient's functional status was evaluated. [address] [address] PAIN MANAGEMENT CONSULTATION Name: PATRICIA DURHAM Room #: REG [facility].#: [id number] Admission: 02/12/20 Attend Phys: Teresa oSn Discharge: Date of : 60 Report #: [id number] All patients with back pain were advised against the bed rest greater than 4 days and were advised to return to normal activities. Pain score assessment was noted and the treatment plan was reviewed with the patient. All current medications, both prescribed and OTC were reviewed and reconciled on the electronic medical record. Tobacco screening was accomplished and smoking cessation was advised when indicated. BMI was noted and diet/exercise modification was recommended for all patients following outside normal parameters. I reviewed with the patient today their responsibilities to safeguard prescription medications, reviewed their responsibility to utilize medications only as prescribed by the physician. They are to seek and receive pain medications only from 1 physician group ( [facility]). They are to use 1 pharmacy and keep the clinic informed if they change pharmacies. Their responsibilities include making followup visits in a timely fashion and to avoid abrupt discontinuation of medication usage. Their responsibilities further include bringing their medications (bottles from the pharmacy with residual pills) to the visit for possible confirmation of pill counts and the patient understands it is their responsibility to submit to random drug screens to ensure both that the medications prescribed are present, and that no other controlled substances are present. All prescriptions provided today were generated electronically. PLAN: 1. We discussed treatment options with the patient today. We explained to the patient it was not our plan for her to stop so many meds so quickly. We did discuss polypharmacy at her last visit with Dr. Reynaldo Aaron to ask her providers if she was able to decrease them. She states she did go through with some withdrawal, but is feeling better, clear thinking. She has decreased her medicine and is happy that she has done this. She would like to continue to decrease her medications opioid and benzodiazepine class, but she states that the oxycodone 5/325 is not as beneficial as the oxycodone 7.5. We did discuss the morphine milliequivalent conversions if we decrease according to Dr. Aaron's plan of 22 MME per day. After discussion with Dr. Aaron, he is agreeing upon allowing her oxycodone 7.5/325 two tablets a day. Scripts will be sent for 60 tablets for today and 4-week supply. 2. We will decrease her diazepam 5 mg tablets from 75 a month to 60. The patient states that these are her muscle relaxant. I explained that they are a benzodiazepine in classification along with all of her other centrally active medications that is one that we would like to decrease. I explained to the patient, she may split the medicine if she feels that she is having spasms that she needs her medication more than twice a day. Scripts sent for 2 months of this medication. 3. Dr. Aaron did see the patient very briefly and collaborated care with me [address] [address] PAIN MANAGEMENT CONSULTATION Name: PATRICIA DURHAM GARRY Room #: REG JO[facility] Rios#: [id number] Admission: 02/12/20 Attend Phys: Teresa Son Discharge: Date of : 60 Report #: [id number] today. The patient will return in 2 months. At that time, we are hopeful to decrease her oxycodone to 45 tablets per month. <ELECTRONICALLY SIGNED> By: Teresa Son 02/13/20 0940 [id number] Teresa Son /nt
== END ==
LOC: PAIN 06:54
PROVIDERS: ATTEND Clinical Nurse Specialist Adult Health
DX: R10.9 Unspecified abdominal pain (principal); G89.29 Other chronic pain; I10 Essential (primary) hypertension; G40.909 Epilepsy, unspecified, not intractable, without status epilepticus; F11.20 Opioid dependence, uncomplicated; Z79.899 Other long term (current) drug therapy; Z86.2 Personal history of diseases of the blood and blood-forming organs and certain disorders involving the immune mechanism; Z88.8 Allergy status to other drugs, medicaments and biological substances

== ENCOUNTER → 2020-02-19 | Outpatient (CLI) | payer OTHER ==
[2020-02-19 14:34] LABS: CREATININE 1.2 mg/dL (0.6-1.0)
== END ==
LOC: CAT 09:33
PROVIDERS: ATTEND Family Medicine
DX: R91.1 Solitary pulmonary nodule (principal); I25.10 Atherosclerotic heart disease of native coronary artery without angina pectoris; J98.4 Other disorders of lung; J98.11 Atelectasis; M25.78 Osteophyte, vertebrae

== ENCOUNTER → 2020-04-03 | Outpatient (CLI) | payer OTHER ==
[~2020-04-03] VITALS: Ht 162.6 cm; Wt 81.1 kg
[~2020-04-03] MED LIST changes: +LIORESAL 10 MG10 MG PO; +PERCOCET 7.5-31 EAC1 PO
[2020-04-03 11:30] VITALS: BP 121/71
--- NOTE | 2020-04-03 11:42 | NUR ---
Pain Clinic Assessment: 1. History of Osteoarthritis: BACK-SPINE History of Rheumatoid Arthritis: DENIES 2. Height: 5 ft. 4 in. 162.6 cm. Weight: 178.8 lb. oz. 81.103 kg. Patient's BMI: 30.7 3. Vital Signs: BP: 121/71 Pulse: 66 Resp: 18 Temp: 02 Sat: 98 ECG Mon: 4. Pain Intensity: 7 neck, 6 back stomach 5. Fall Risk: Dizziness: N Needs help standing or walking: N Fallen in the last 3 months: Y Fall risk comments: 6. Patient on Blood Thinner: NONE 7. History of Hypertension: N 8. Opioid Therapy greater than 6 weeks: Y Opiate Contract Signed: 11/03/15 9. Risk Assessment Tool Provided: MOD-4 10. Functional Assessment Tool: 11. Recreational Drug Use: Never Drug Type: Tobacco Use: Never Smoker Tobacco Type: Amount or Packs/day: How Many Years: Alcohol Use: No Frequency: Quant:
--- NOTE | 2020-04-04 08:43 | HPC ---
[facility] [address] [place] [address] PAIN MANAGEMENT CONSULTATION Name: PATRICIA DURHAM Room #: REG [facility].#: [id number] Admission: 04/03/20 Attend Phys: Teresa Son Discharge: Date of : 60 Report #: [id number] THIS REPORT FOR: cc: Fredrick Kumar MD, Neal A. MD Hocker, Amanda CNS ~ CC: Teresa Aaron MD DATE OF SERVICE: 04/03/2020 CHIEF COMPLAINT: Chronic abdominal pain, diffuse skeletal pain. HISTORY OF PRESENT ILLNESS: This is a 60-year-old female who is well known to the pain clinic and been seeing Dr. Aaron for several years for her ongoing chronic abdominal pain issues. She does have also chronic complaints due to her comorbidities and today, she is stating that she is having significant pain in her neck and shoulders. She also has oral issues that is requiring several dental procedures due to her Sjogren's disease and decreased saliva. The patient is also reporting to us today that she recently completed a 72-hour EEG. She has had seizure disorders and they are continued to monitor her. She had stopped several of her seizure medications. Per her report, she was feeling better off these medications, but lately she has had some episodes in the middle of the night that have caused her to revisit her neurologist and possibly rethink her seizure medications. She is awaiting results from the last test. The patient is here today, reporting pain in her low back, neck, shoulders, and lower left abdominal area. It is a spasm, sharp, tenderness feeling that she is experiencing. She states worse with eating or lying down or being active. She feels her muscles are tighter than they had been previously. She is requesting an increase in her Valium medication today, but does report that at some points, she is reporting that some days she is able to take only one pain pill a day. Today, her pain score is 6-7. ALLERGIES: DEMEROL, HYDROMORPHONE, MORPHINE, SUCRALFATE, ERYTHROMYCIN, ADHESIVE TAPE, VERSED, LATEX, AND AMBIEN. PQRS: 1. She has diffuse osteoarthritis of multiple joints. Denies any rheumatoid arthritis. 2. Height is 5 feet 4 inches, weight is 178, BMI is 30. Vital signs 121/71, pulse is 66, respirations 18, oxygen sat is 98. 3. Pain score is 6-7. 4. Denies dizziness, does not need help walking. The patient states she has fallen in the last 3 [place] [address] PAIN MANAGEMENT CONSULTATION Name: PATRICIA DURHAM GARRY Room #: REG CL Gabriel#: [id number] Admission: 04/03/20 Attend Phys: Teresa Son Discharge: Date of : 60 Report #: [id number] 5. The patient is not on any blood thinners or medicine for hypertension. 6. Her opioid therapy is greater than 6 weeks; therefore, an opioid signed contract is on the chart. Risk assessment is moderate. Functional assessment is 52/70. 7. Recreational drug use, she denies. She is not a smoker and does not drink alcohol. According to the prescription monitoring system, she is filling appropriately. Her morphine milliequivalent is 22 MME per day. She does take a benzodiazepine and opioid combination. She has been closely monitored on these medicines and we have been slowly decreasing those over the last few months. There is a drug screen on the chart that is appropriate for her medications as well. PHYSICAL EXAMINATION: GENERAL: This is a pleasant and orientated 60-year-old lady, who appears her stated age. She is answering all my questions appropriately. HEENT: Normocephalic, atraumatic. Extraocular eye muscles are intact. She is wearing a mask. Complains of tenderness in her oral mucosa. No redness noted. MUSCULOSKELETAL: She has tenderness throughout her torso and extremities as well as her paraspinal musculature in her cervical spine. She has a slightly antalgic gait. ABDOMEN: Tenderness in her left lower quadrant and left upper quadrant. IMPRESSION: 1. Chronic intractable abdominal pain, status post multiple surgeries. 2. Polypharmacy. 3. Partial seizure disorder. 4. History of Sjogren's syndrome. 5. Management of opioid medications under written agreement. We reviewed the fact that opiate medications are being used to provide analgesia adequate to support activities of daily living, not attempting to achieve a specific pain score on the 0-10 Visual Analog Scale. The current opiate medications are providing sufficient analgesia to allow the patient to participate in activities of daily living. The patient is not exhibiting any aberrant behavior suggestive of drug diversion. The patient is not having any adverse reactions to medications. The patient is not suffering from daytime somnolence or mental acuity changes. The patient is managing opiate-induced constipation with appropriate [id number] agents and dietary considerations. The patient was counseled on concern for caution with operating a motor vehicle while using opiate medications. PLAN: 1. We discussed treatment options with the patient today. The patient reports having had an EEG. I encouraged the patient to send us those reports from her [facility] [address] [place] [address] PAIN MANAGEMENT CONSULTATION Name: PATRICIA DURHAM Room #: REG [facility] iRos#: [id number] Admission: 04/03/20 Attend Phys: Teresa Son Discharge: Date of : 60 Report #: [id number] neurologist and to report to us if she does restart any of her Keppra or Lamictalor their plan. 2. The patient is requesting an increase in her Valium, stating that she is having some increasing muscle spasms in her neck, shoulder and lower back. I explained to her that we were trying to decrease some of her centrally-acting medications, which she has slowly done for the past few months. She is on diazepam for her muscle relaxant, but she feels this is not adequate, she had recently stopped her Flexeril as well as Cymbalta, which I assured her that probably were beneficial in helping reduce some of her muscle spasms. We will offer a trial of baclofen 10 mg twice a day. This is less centrally-acting to her pharmacy, encouraging the patient to take 1-2 tablets a day. If she finds these beneficial, we will continue this dose. If she finds that they are still slightly beneficial, we may increase it to 20 mg as needed. The patient is agreeable with this. 3. We will have Dr. Reynaldo Aaron send her Valium 5 mg tablets, #60 as well as her oxycodone 7.5/325, #60 for today and for an 8-week release. 4. The patient will return in 3 months, but call to notify us of changes. The patient is seen today in collaboration with Dr. Reynaldo Aaron. <ELECTRONICALLY SIGNED> By: Teresa Son 04/04/20 [id number] Teresa Son /nt
== END ==
LOC: PAIN 06:55
PROVIDERS: ATTEND Clinical Nurse Specialist Adult Health
DX: R10.9 Unspecified abdominal pain (principal); G89.29 Other chronic pain; G40.909 Epilepsy, unspecified, not intractable, without status epilepticus; M35.00 Sjogren syndrome, unspecified; F11.20 Opioid dependence, uncomplicated; Z88.8 Allergy status to other drugs, medicaments and biological substances; Z79.899 Other long term (current) drug therapy

== ENCOUNTER → 2020-06-26 | Outpatient (CLI) | payer OTHER ==
[~2020-06-26] VITALS: Ht 162.6 cm; Wt 76.9 kg
[2020-06-26 12:39] VITALS: BP 104/68
--- NOTE | 2020-06-26 12:54 | NUR ---
Pain Clinic Assessment: 1. History of Osteoarthritis: BACK-SPINE History of Rheumatoid Arthritis: DENIES 2. Height: 5 ft. 4 in. 162.6 cm. Weight: 169.6 lb. oz. 76.930 kg. Patient's BMI: 29.1 3. Vital Signs: BP: 104/68 Pulse: 70 Resp: 14 Temp: 02 Sat: 100 ECG Mon: 4. Pain Intensity: 8 5. Fall Risk: Dizziness: N Needs help standing or walking: N Fallen in the last 3 months: N Fall risk comments: 6. Patient on Blood Thinner: NONE 7. History of Hypertension: N 8. Opioid Therapy greater than 6 weeks: Y Opiate Contract Signed: 11/03/15 9. Risk Assessment Tool Provided: MOD-4 10. Functional Assessment Tool: 11. Recreational Drug Use: Never Drug Type: Tobacco Use: Never Smoker Tobacco Type: Amount or Packs/day: How Many Years: Alcohol Use: No Frequency: Quant:
== END ==
LOC: PAIN 06:53
PROVIDERS: ATTEND Anesthesiology Pain Medicine
DX: K85.90 Acute pancreatitis without necrosis or infection, unspecified (principal); G89.29 Other chronic pain; F32.9 Major depressive disorder, single episode, unspecified; F11.20 Opioid dependence, uncomplicated

== ENCOUNTER → 2020-08-21 | Outpatient (CLI) | payer OTHER ==
[~2020-08-21] VITALS: Ht 162.6 cm; Wt 80.0 kg
[~2020-08-21] MED LIST changes: +DIAZEPAM 5 MG5 M1 PO; +DYRENIUM50 MG PO
[2020-08-21 13:49] VITALS: BP 109/77
--- NOTE | 2020-08-21 13:56 | NUR ---
Pain Clinic Assessment: 1. History of Osteoarthritis: BACK-SPINE History of Rheumatoid Arthritis: DENIES 2. Height: 5 ft. 4 in. 162.6 cm. Weight: 176.4 lb. oz. 80.015 kg. Patient's BMI: 30.3 3. Vital Signs: BP: 109/77 Pulse: 63 Resp: 18 Temp: 02 Sat: 99 ECG Mon: 4. Pain Intensity: 7 5. Fall Risk: Dizziness: N Needs help standing or walking: N Fallen in the last 3 months: N Fall risk comments: 6. Patient on Blood Thinner: NONE 7. History of Hypertension: N 8. Opioid Therapy greater than 6 weeks: Y Opiate Contract Signed: 11/03/15 9. Risk Assessment Tool Provided: MOD-4 10. Functional Assessment Tool: 11. Recreational Drug Use: Never Drug Type: Tobacco Use: Never Smoker Tobacco Type: Amount or Packs/day: How Many Years: Alcohol Use: No Frequency: Quant:
== END ==
LOC: PAIN 06:59
PROVIDERS: ATTEND Clinical Nurse Specialist Adult Health
DX: R10.9 Unspecified abdominal pain (principal); G89.29 Other chronic pain; F32.9 Major depressive disorder, single episode, unspecified; F11.20 Opioid dependence, uncomplicated; Z79.899 Other long term (current) drug therapy; Z86.2 Personal history of diseases of the blood and blood-forming organs and certain disorders involving the immune mechanism; Z88.8 Allergy status to other drugs, medicaments and biological substances

== ENCOUNTER → 2020-11-10 | Outpatient (CLI) | payer OTHER ==
[~2020-11-10] VITALS: Ht 162.6 cm; Wt 87.2 kg
[~2020-11-10] MED LIST changes: +ENDOCET 7.5-321 EACH PO
[2020-11-10 11:19] VITALS: BP 101/61
--- NOTE | 2020-11-10 11:31 | NUR ---
Pain Clinic Assessment: 1. History of Osteoarthritis: BACK-SPINE History of Rheumatoid Arthritis: DENIES 2. Height: 5 ft. 4 in. 162.6 cm. Weight: 192.2 lb. oz. 87.181 kg. Patient's BMI: 33.0 3. Vital Signs: BP: 101/61 Pulse: 60 Resp: 16 Temp: 02 Sat: 100 ECG Mon: 4. Pain Intensity: 7 5. Fall Risk: Dizziness: Y Needs help standing or walking: N Fallen in the last 3 months: N Fall risk comments: 6. Patient on Blood Thinner: NONE 7. History of Hypertension: N 8. Opioid Therapy greater than 6 weeks: Y Opiate Contract Signed: 11/03/15 9. Risk Assessment Tool Provided: MOD-4 10. Functional Assessment Tool: 11. Recreational Drug Use: Never Drug Type: Tobacco Use: Never Smoker Tobacco Type: Amount or Packs/day: How Many Years: Alcohol Use: Yes Frequency: Special Occasions Quant: 1
== END ==
LOC: PAIN 07:20
PROVIDERS: ATTEND Anesthesiology Pain Medicine
DX: R10.9 Unspecified abdominal pain (principal); G89.4 Chronic pain syndrome; M35.00 Sjogren syndrome, unspecified; M79.10 Myalgia, unspecified site; Z91.040 Latex allergy status; Z79.891 Long term (current) use of opiate analgesic; Z72.89 Other problems related to lifestyle; Z79.899 Other long term (current) drug therapy; Z88.1 Allergy status to other antibiotic agents; Z88.5 Allergy status to narcotic agent; Z88.8 Allergy status to other drugs, medicaments and biological substances

== ENCOUNTER → 2021-02-02 | Outpatient (CLI) | payer OTHER ==
[~2021-02-02] VITALS: Ht 162.6 cm; Wt 83.6 kg
[~2021-02-02] MED LIST changes: +ZALEPLON 10 MG10 M1 PO
[2021-02-02 11:15] VITALS: BP 101/66
--- NOTE | 2021-02-02 11:38 | NUR ---
Pain Clinic Assessment: 1. History of Osteoarthritis: BACK-SPINE History of Rheumatoid Arthritis: DENIES 2. Height: 5 ft. 4 in. 162.6 cm. Weight: 184.4 lb. oz. 83.643 kg. Patient's BMI: 31.6 3. Vital Signs: BP: 101/66 Pulse: 64 Resp: 18 Temp: 02 Sat: 99 ECG Mon: 4. Pain Intensity: 7 5. Fall Risk: Dizziness: Needs help standing or walking: Fallen in the last 3 months: Fall risk comments: 6. Patient on Blood Thinner: NONE 7. History of Hypertension: N 8. Opioid Therapy greater than 6 weeks: Y Opiate Contract Signed: 11/03/15 9. Risk Assessment Tool Provided: MOD-4 10. Functional Assessment Tool: 11. Recreational Drug Use: Never Drug Type: Tobacco Use: Never Smoker Tobacco Type: Amount or Packs/day: How Many Years: Alcohol Use: Yes Frequency: Quant:
== END ==
LOC: PAIN 08:26
PROVIDERS: ATTEND Clinical Nurse Specialist Adult Health
DX: G89.29 Other chronic pain (principal); R10.9 Unspecified abdominal pain; M35.00 Sjogren syndrome, unspecified; F11.90 Opioid use, unspecified, uncomplicated; F32.89 Other specified depressive episodes

== ENCOUNTER → 2021-03-26 | Outpatient (CLI) | payer OTHER ==
[~2021-03-26] VITALS: Ht 160 cm; Wt 83.1 kg
[2021-03-26 13:35] VITALS: BP 106/71
--- NOTE | 2021-03-26 13:42 | NUR ---
Pain Clinic Assessment: 1. History of Osteoarthritis: BACK-SPINE History of Rheumatoid Arthritis: DENIES 2. Height: 5 ft. 3 in. 160.0 cm. Weight: 183.2 lb. oz. 83.099 kg. Patient's BMI: 32.5 3. Vital Signs: BP: 106/71 Pulse: 70 Resp: 16 Temp: 02 Sat: 100 ECG Mon: 4. Pain Intensity: 7 5. Fall Risk: Dizziness: Y Needs help standing or walking: N Fallen in the last 3 months: N Fall risk comments: PT STATES SHE HAS HAD TROUBLE EATING PROPERLY DUE TO "STOMACH TIGHTNESS" WHICH LEADS TO BP DROPPING AND DIZZINESS NO FALLS. 6. Patient on Blood Thinner: NONE 7. History of Hypertension: N 8. Opioid Therapy greater than 6 weeks: N Opiate Contract Signed: 11/03/15 9. Risk Assessment Tool Provided: MOD-4 10. Functional Assessment Tool: 11. Recreational Drug Use: Never Drug Type: Tobacco Use: Never Smoker Tobacco Type: Amount or Packs/day: How Many Years: Alcohol Use: Yes Frequency: Weekly Quant:
== END ==
LOC: PAIN 10:57
PROVIDERS: ATTEND Anesthesiology Pain Medicine
DX: G89.29 Other chronic pain (principal); M54.16 Radiculopathy, lumbar region; Z88.8 Allergy status to other drugs, medicaments and biological substances

== ENCOUNTER → 2021-03-30 | Outpatient (CLI) | payer OTHER ==
[~2021-03-30] VITALS: Ht 160 cm; Wt 82.3 kg
[~2021-03-30] MED LIST changes: +TRULICITY0.75 MG/0. SUBQ
[2021-03-30 13:24] VITALS: BP 93/61
--- NOTE | 2021-03-30 13:45 | NUR ---
Pain Clinic Assessment: 1. History of Osteoarthritis: BACK-SPINE History of Rheumatoid Arthritis: DENIES 2. Height: 5 ft. 3 in. 160.0 cm. Weight: 181.4 lb. oz. 82.283 kg. Patient's BMI: 32.1 3. Vital Signs: BP: 93/61 Pulse: 72 Resp: 16 Temp: 02 Sat: 100 ECG Mon: 4. Pain Intensity: 7 5. Fall Risk: Dizziness: Y Needs help standing or walking: N Fallen in the last 3 months: N Fall risk comments: PT STATES SHE HAS HAD TROUBLE EATING PROPERLY DUE TO "STOMACH TIGHTNESS" WHICH LEADS TO BP DROPPING AND DIZZINESS NO FALLS. 6. Patient on Blood Thinner: NONE 7. History of Hypertension: N 8. Opioid Therapy greater than 6 weeks: N Opiate Contract Signed: 11/03/15 9. Risk Assessment Tool Provided: MOD-4 10. Functional Assessment Tool: 11. Recreational Drug Use: Never Drug Type: Tobacco Use: Never Smoker Tobacco Type: Amount or Packs/day: How Many Years: Alcohol Use: Yes Frequency: Special Occasions Quant: 1
== END | disposition home or self-care (01) ==
LOC: PAIN 10:07
PROVIDERS: ATTEND Anesthesiology Pain Medicine
DX: M54.16 Radiculopathy, lumbar region (principal); G89.29 Other chronic pain; M96.1 Postlaminectomy syndrome, not elsewhere classified; Z98.890 Other specified postprocedural states; Z79.899 Other long term (current) drug therapy; Z88.8 Allergy status to other drugs, medicaments and biological substances; Z91.040 Latex allergy status

== ENCOUNTER → 2021-04-08 | Outpatient (CLI) | payer OTHER ==
[~2021-04-08] MED LIST changes: +CEVIMELINE HCL30 MG PO; +DULOXETINE HCL30 MG PO
--- NOTE | 2021-04-08 12:50 | NUR ---
PT HERE FOR PORT FLUSH. REPORTS DOING WELL, FEELING GOOD SHE CAN. NO NEW CONCERNS. PORT ACCESSED WITH EASE, BRISK BLOOD RETURN, FLUSH DONE AND DEACCESSED PRIOR TO DISMISSAL.
== END ==
LOC: OPONC 09:51
PROVIDERS: ATTEND Family Medicine
DX: Z45.2 Encounter for adjustment and management of vascular access device (principal); E20.0 Idiopathic hypoparathyroidism; D50.9 Iron deficiency anemia, unspecified

== ENCOUNTER → 2021-05-13 | Outpatient (CLI) | payer OTHER ==
--- NOTE | 2021-05-13 18:14 | NUR ---
PT HERE FOR ROUTINE PORT FLUSH. ACCESSED WITH EASE. FLUSHES WITHOUT RESISTANCE. INITIALLY NO BLOOD RETURN BUT POSITIONED PT WITH HER LEFT ARM OUT TO HER SIDE AND BLOOD RETURN OBTAINED. FLUSHED WITH 20ML NS FOLLOWED BY HEPARIN FLUSH. DEACCESSED UPON COMPLETION. DISMISSED IN STABLE CONDITION. SCHEDULED TO RETURN IN 5 WEEKS PER PT REQUEST.
== END ==
LOC: OPONC 15:05
PROVIDERS: ATTEND Family Medicine
DX: Z45.2 Encounter for adjustment and management of vascular access device (principal); E20.0 Idiopathic hypoparathyroidism; D50.9 Iron deficiency anemia, unspecified

== ENCOUNTER → 2021-06-10 | Outpatient (CLI) | payer BC | LOC: RAD 13:37 | PROVIDERS: ATTEND Family Medicine | DX: M54.50 Low back pain, unspecified (principal) ==

== ENCOUNTER → 2021-06-18 | Outpatient (CLI) | payer BC ==
[~2021-06-18] VITALS: Ht 160 cm; Wt 77.4 kg
[~2021-06-18] MED LIST changes: +BUSPIRONE HCL5 MG PO
[2021-06-18 11:21] VITALS: BP 85/60
--- NOTE | 2021-06-18 11:46 | NUR ---
Pain Clinic Assessment: 1. History of Osteoarthritis: BACK-SPINE History of Rheumatoid Arthritis: DENIES 2. Height: 5 ft. 3 in. 160.0 cm. Weight: 170.6 lb. oz. 77.384 kg. Patient's BMI: 30.2 3. Vital Signs: BP: 85/60 Pulse: 76 Resp: 14 Temp: 02 Sat: 100 ECG Mon: 4. Pain Intensity: 7 5. Fall Risk: Dizziness: N Needs help standing or walking: N Fallen in the last 3 months: Y Fall risk comments: PT STATES SHE HAS HAD TROUBLE EATING PROPERLY DUE TO "STOMACH TIGHTNESS" WHICH LEADS TO BP DROPPING AND DIZZINESS NO FALLS. 6. Patient on Blood Thinner: NONE 7. History of Hypertension: N 8. Opioid Therapy greater than 6 weeks: N Opiate Contract Signed: 11/03/15 9. Risk Assessment Tool Provided: MOD-4 10. Functional Assessment Tool: 11. Recreational Drug Use: Never Drug Type: Tobacco Use: Never Smoker Tobacco Type: Amount or Packs/day: How Many Years: Alcohol Use: Yes Frequency: Quant:
== END ==
LOC: PAIN
PROVIDERS: ATTEND Clinical Nurse Specialist Adult Health
DX: G89.29 Other chronic pain (principal); R10.9 Unspecified abdominal pain; M54.16 Radiculopathy, lumbar region; Z88.8 Allergy status to other drugs, medicaments and biological substances; Z79.899 Other long term (current) drug therapy